=== PATIENT | female | born 1940 | race Caucasian/White ===

== ENCOUNTER 2016-10-15 13:14 | Emergency (ER) | payer OTHER ==
[~2016-10-15] VITALS: Ht 149.9 cm; Wt 100.7 kg
[~2016-10-15 13:14] MED LIST: ATENOLOL50 MG PO; CALCIUM + D 6001 TAB PO; COENZYME Q-10100 MG PO; FUROSEMIDE40 MG PO; GOOD SENSE ASPI81 M1 PO; LEVSIN-SL0.125 MG SL; MECLIZINE HCL25 MG PO; MOBIC15 MG PO; NEURONTIN300 MG PO; TYLENOL WITH C1 EACH PO; VITAMIN B1001 TAB PO; ZYLOPRIM 300MG300 MG PO
--- NOTE | 2016-10-15 14:00 | ULTRASOUND REPORT ---
EXAMINATION: US TRIPLEX LOWER EXTREMITY, LEFT CLINICAL INFORMATION: Left lower extremity pain and swelling of one week's duration. COMPARISON: None. TECHNIQUE: Color-flow triplex imaging with spectral analysis and compression Doppler were performed on the lower extremity. FINDINGS: Respiratory variation, normal compression and augmented flow are noted throughout the left lower extremity. The visualized common femoral vein, proximal greater saphenous vein, femoral vein, profunda femoral vein, popliteal vein and visualized mid calf venous segments show no evidence of deep venous thrombosis. There is a left popliteal fossa 3.4 x 1.1 x 1.5 cm Cortes's cyst. IMPRESSION: 1. Normal triplex scan without evidence of deep venous thrombosis involving the left lower extremity. 2. A left popliteal fossa Cortes's cyst is seen, as detailed.
--- NOTE | 2016-10-15 16:04 | ED UPPER/LOWER EXTREMITY COMPL ---
History of Present Illness General Chief Complaint: General Adult Stated Complaint: LEFT LEG SWELLING Source: patient Exam Limitations: no limitations Vital Signs & Intake/Output Vital Signs & Intake/Output Vital Signs Date Time Temp Pulse Resp B/P B/P Pulse O2 O2 Flow FiO2 Mean Ox Delivery Rate 10/15 1713 96.7 70 16 153/71 97 Room Air 10/15 1546 Room Air Room Air 10/15 1543 97.4 81 15 134/65 98 Room Air Room Air 10/15 1320 98.6 70 18 133/73 96 Room Air Allergies Coded Allergies: Fish Containing Products (Severe, RASH FROM FISH 09/25/15) cilostazol (Severe, RECTAL BLEEDING AND RASH 09/25/15) pentoxifylline (Severe, RECTAL BLEEDING AN RASH 09/25/15) pork derived (porcine) (Severe, RASH 09/25/15) shellfish derived (Severe, RASH 09/25/15) morphine (Intermediate, RASH 09/25/15) acetaminophen (From Percocet) (UNKNOWN 09/25/15) adhesive tape (UNKNOWN 09/26/15) aspirin (RASH WITH HIGHER DOSE (81MG DOSE IS OK?) 09/25/15) cabbage (UNKNOWN 09/25/15) cortisone (UNKNOWN 09/25/15) guaifenesin (UNKNOWN 09/25/15) hydrocodone (UNKNOWN 09/25/15) latex (UNKNOWN 09/25/15) oxycodone (From Percocet) (UNKNOWN 09/25/15) propoxyphene (RASH AND NAUSEA 09/25/15) lactase (From DAIRY AID) (Intermediate, UNKNOWN 09/26/15) Uncoded Allergies: WHITE BREAD (Intermediate, UNKNOWN 09/26/15) Reconcile Medications Allopurinol (Zyloprim 300MG Tab) 300 MG TABLET 1 TAB PO DAILY GOUT (Reported) Aspirin 81 MG TAB.CHEW 1 TAB PO DAILY HEART HEALTH (Reported) Atenolol 50 MG TABLET 1 TAB PO DAILY HTN (Reported) Calcium/Vitamin D (Calcium + D) 600 MG/200 IU TAB 1 TAB PO BID BONES ( Reported) Coenzyme Q10 (Coenzyme Q-10) 100 MG CTB 1 TAB PO DAILY SUPPLEMENT (Reported) Furosemide 40 MG TABLET 1 TAB PO DAILY HTN (Reported) Gabapentin (Neurontin) 300 MG CAP 1 CAP PO 4 TIMES UNKNOWN (Reported) Hyoscyamine Sulfate (Levsin-Sl) 0.125 MG TAB.SUBL 1-2 TAB SL Q4P PRN abdominal cramps Meclizine HCl 25 MG TABLET 1 TAB PO TIDPRN PRN vertigo Meloxicam (Mobic) 15 MG TAB 1 TAB PO DAILY UNKNOWN (Reported) Vitamin B Complex4 (Vitamin B100) 1 TAB TAB 1 TAB PO BID SUPPLEMENT (Reported ) Triage Note: 76 Y/O FEMALE C/O PAIN TO L LOWER EXTREMITY X 1 WEEK. REPORTS SWELLING TO KNEE AND PAIN BEHIND THE LEG. WEARING COMPRESSION WRAP WHICH PT IS UNSURE IF IT IS HELPING. PMD CONCERNED ABOUT DVT. Triage Nurses Notes Reviewed? yes Onset: Abrupt Duration: week(s): (2), constant, continues in ED Timing: recent history Severity: moderate, severe Pain/Injury Location: Left: Leg, Knee. Method of Injury: unknown No Modifying Factors: none HPI: 76-year-old female comes into emergency room for further evaluation of left leg pain and knee pain. Patient reports that she's been having pain for the past couple weeks. Pain is sharp. Throbbing. Continuous. Associated swelling of the entire leg. Patient has a history of previous knee replacement 20 years ago. She reports that her leg gives out from time to time and she falls at home intermittently. She uses a walker. She primarily has pain in her knee but reports some diffuse leg swelling. Denies any redness. Denies any fever or chills. Denies any other symptoms such as chest pain shortness of breath lightheaded dizziness area of mechanical falls. (SENA JOHNSON) Past History Travel History Traveled to [place] past 21 day No Medical History Any Pertinent Medical History? see below for history Neurological: NONE EENT: hearing loss, WEARS HEARING AIDS Cardiovascular: CHF, hypertension, PACEMAKER L CHEST Respiratory: NONE Gastrointestinal: NONE Hepatic: NONE Renal: NONE Musculoskeletal: osteoarthritis, "L SHOULDER POPS OUT" Psychiatric: NONE Endocrine: NONE Blood Disorders: NONE Cancer(s): NONE [employer]/Reproductive: NONE History of MRSA: No History of VRE: No History of CDIFF: No Surgical History Surgical History: knee replacement (B/L), L SHOULDER REPAIR Psychosocial History Who do you live with Family Services at Home None What is your primary language Luxembourgish Tobacco Use: Never used Family History Hx Contributory? No (SENA JOHNSON) Review of Systems Review of Systems Constitutional: Reports: no symptoms. EENTM: Reports: no symptoms. Respiratory: Reports: no symptoms. Cardiovascular: Reports: no symptoms. Gastrointestinal/Abdominal: Reports: no symptoms. Genitourinary: Reports: no symptoms. Musculoskeletal: Reports: see HPI. Skin: Reports: no symptoms. Neurological/Psychological: Reports: no symptoms. Hematologic/Endocrine: Reports: no symptoms. Immunological: Reports: no symptoms. All Other Systems: Reviewed and Negative (SENA JOHNSON) Physical Exam Physical Exam General Appearance: well developed/nourished, mild distress Head: atraumatic Eyes: Bilateral: normal appearance. Ears, Nose, Throat: normal ENT inspection, hearing grossly normal Neck: normal inspection Cardiovascular/Respiratory: no respiratory distress Back: normal inspection Leg Left: swelling, no pitting edema, no warmth, no erythema, Knee Left: Limited range of motion, soft tissue tenderness, Foot Left: normal inspection, normal range of motion Neurologic/Tendon: normal sensation, normal motor functions, normal tendon functions, responds to pain, no evidence tendon injury, no pulse deficit Skin: intact, normal color, warm/dry Lymphatic: no anterior cervical dave (SENA JOHNSON) Progress Differential Diagnosis: arterial insufficiency, cellulitis, CHF, contusion, dislocation, DVT, fracture, gout, septic arthritis, sprain, tendon injury Plan of Care: Orders Procedure Date/time Status XRY-KNEE COMPLETE LEFT 10/153 Active Diagnostic Imaging: Viewed by Me: Radiology Read, Ultrasound. Discussed w/RAD: Radiology Read, Ultrasound. Radiology Impression: EXAM TYPE: RAD - XRY-KNEE COMPLETE LEFT EXAMINATION: XR KNEE, LEFT CLINICAL INFORMATION: Pain status post fall. COMPARISON: 02/28/2016. TECHNIQUE: Four views of the left knee. FINDINGS: There are post total knee arthroplasty changes with metallic distal femoral and proximal tibial components with resurfacing of the patella with a radiolucent spacer. There are a few small osseous fragments identified, 2 above the patella these may represent small intra-articular loose bodies, they are not well seen on the other views. The largest fragment is the inferior one measuring 1.3 cm maximal dimension. Small joint effusion is suspected. IMPRESSION: No evidence of an acute injury. Postoperative changes with small osseous fragments as noted. DICTATED BY: NEREIDA PANDA MD DATE/TIME DICTATED:10/15/161642 ACTUARIAL CLERK:[place] , SERVICE DATE: 10/15/16 EXAM TYPE: US - US-UNILATERAL VENOUS DOPPLER EXAMINATION: US TRIPLEX LOWER EXTREMITY, LEFT CLINICAL INFORMATION: Left lower extremity pain and swelling of one week's duration. COMPARISON: None. TECHNIQUE: Color-flow triplex imaging with spectral analysis and compression Doppler were performed on the lower extremity. FINDINGS: Respiratory variation, normal compression and augmented flow are noted throughout the left lower extremity. The visualized common femoral vein, proximal greater saphenous vein, femoral vein, profunda femoral vein, popliteal vein and visualized mid calf venous segments show no evidence of deep venous thrombosis. There is a left popliteal fossa 3.4 x 1.1 x 1.5 cm Cortes's cyst. IMPRESSION: 1. Normal triplex scan without evidence of deep venous thrombosis involving the left lower extremity. 2. A left popliteal fossa Cortes's cyst is seen, as detailed. DICTATED BY: DAYA MURRIETA MD DATE/TIME DICTATED:10/15/161352 ACTUARIAL CLERK:ER[place] DATE/ TIME TRANSCRIBED:10/15/161352 Comments: 10/15/2016 5:47:16 PM Patient clinically looks well. Patient is nontoxic-appearing. Patient is in no apparent distress. No evidence of acute fracture. No evidence of DVT. No evidence of septic joint. Patient needs follow back up with primary care doctor. Return if any other concerns. Patient understands and agrees with plan of care. Case discussed with Dr. Mercer. ([facility]) Departure Departure Disposition: HOME OR SELF CARE Condition: Stable Clinical Impression Primary Impression: Cortes's cyst of knee Secondary Impressions: Arthritis Referrals: DAVIN AMAYA,DERRICK Johnson (PCP/Family) Additional Instructions: Ice. Rest. Follow-up with orthopedic doctor. Take your pain medication at home. Return if any concerns. Please go over all results of today's visit with your primary care doctor. Contact your primary care doctor to let them know you were here in the emergency room. There may be nonspecific findings which may not be related to your visit today here in the emergency room but may require further evaluation and chronic monitoring by your primary care doctor. If you had a laceration today the chance of foreign body always remains. You should follow-up with your primary care doctor for recheck in 3-5 days for a wound check. If you had an x-ray done there is a chance that a fracture could have been missed on initial read and you should follow-up with your primary care doctor for repeat x-rays if symptoms persist. If your blood pressure was elevated here in the emergency room please have rechecked by her primary care doctor within the next 48 hours by your primary care doctor. If you were prescribed a narcotic here in the emergency room or any type of controlled substances you're not allowed to drive while taking this medication or operate any type of heavy machinery. Narcotics can make you feel lightheaded dizziness nausea and can cause constipation. You may need to pickle solution maker a stool softener. Thank you for choosing [facility] emergency room. Please return to the emergency room immediately if you have any other concerns worsening of symptoms. Departure Forms: Customer Survey General Discharge Information (SENA JOHNSON) PA/INSOLE REINFORCER Co-Sign Statement Statement: ED Attending supervision documentation- [x] I saw and evaluated the patient. I have also reviewed all the pertinent lab results and diagnostic results. I agree with the findings and the plan of care as documented in the PA's/INSOLE REINFORCER's documentation. [] I have reviewed the ED Record and agree with the PA's/INSOLE REINFORCER's documentation. [] Additions or exceptions (if any) to the PAs/INSOLE REINFORCER's note and plan are summarized below: [] (MARINO AMAYA,XANDER Bone)
--- NOTE | 2016-10-15 16:49 | RADIOLOGY REPORT ---
EXAMINATION: XR KNEE, LEFT CLINICAL INFORMATION: Pain status post fall. COMPARISON: 02/28/2016. TECHNIQUE: Four views of the left knee. FINDINGS: There are post total knee arthroplasty changes with metallic distal femoral and proximal tibial components with resurfacing of the patella with a radiolucent spacer. There are a few small osseous fragments identified, 2 above the patella these may represent small intra-articular loose bodies, they are not well seen on the other views. The largest fragment is the inferior one measuring 1.3 cm maximal dimension. Small joint effusion is suspected. IMPRESSION: No evidence of an acute injury. Postoperative changes with small osseous fragments as noted.
[2016-10-15 17:13] VITALS: BP 153/71
== END 2016-10-15 18:01 ==
LOC: ERH 13:14
DX: M71.22 Synovial cyst of popliteal space [Baker], left knee (principal); M17.9 Osteoarthritis of knee, unspecified
CPT/HCPCS: 73562-LT

== ENCOUNTER 2017-10-19 01:48 | Emergency (ER) | payer OTHER ==
[~2017-10-19] VITALS: Ht 147.3 cm; Wt 98.0 kg
[~2017-10-19 01:48] MED LIST changes: +ASPIRIN81 M4 PO; +ATENOLOL50 M1 PO; -ATENOLOL50 MG PO; -CALCIUM + D 6001 TAB PO; +CALCIUM + D3 E1 EACH PO; -COENZYME Q-10100 MG PO; +COENZYME Q10100 M1 PO; -FUROSEMIDE40 MG PO; -GOOD SENSE ASPI81 M1 PO; +LASIX40 M1 PO; +MOBIC15 M1 PO; -MOBIC15 MG PO; +NEURONTIN300 M1 PO; -NEURONTIN300 MG PO; +VITAMIN B-6100 M1 PO; -VITAMIN B1001 TAB PO; -ZYLOPRIM 300MG300 MG PO; +ZYLOPRIM300 M1 PO
--- NOTE | 2017-10-19 01:53 | ED UPPER/LOWER EXTREMITY COMPL ---
History of Present Illness General Chief Complaint: Hip Injury Stated Complaint: BIBA LEFT HIP PAIN Source: patient, EMS Exam Limitations: no limitations Vital Signs & Intake/Output Vital Signs & Intake/Output Vital Signs Date Time Temp Pulse Resp B/P B/P Pulse O2 O2 Flow FiO2 Mean Ox Delivery Rate 10/19 0326 98.3 72 18 151/67 97 Room Air 10/19 0153 97.7 75 18 151/75 99 Room Air Allergies Coded Allergies: Fish Containing Products (Severe, RASH FROM FISH 10/20/17) cilostazol (Severe, RECTAL BLEEDING AND RASH 10/20/17) pentoxifylline (Severe, RECTAL BLEEDING AN RASH 10/20/17) pork derived (porcine) (Severe, RASH 10/20/17) shellfish derived (Severe, RASH 10/20/17) morphine (Intermediate, RASH 10/20/17) acetaminophen (From Percocet) (UNKNOWN 10/20/17) adhesive tape (UNKNOWN 10/20/17) aspirin (RASH WITH HIGHER DOSE (81MG DOSE IS OK?) 10/20/17) cabbage (UNKNOWN 10/20/17) cortisone (UNKNOWN 10/20/17) guaifenesin (UNKNOWN 10/20/17) hydrocodone (UNKNOWN 10/20/17) latex (UNKNOWN 10/20/17) oxycodone (From Percocet) (UNKNOWN 10/20/17) propoxyphene (RASH AND NAUSEA 10/20/17) lactase (From DAIRY AID) (Intermediate, UNKNOWN 10/20/17) Uncoded Allergies: WHITE BREAD (Intermediate, UNKNOWN 09/26/15) Reconcile Medications Acetaminophen With Codeine (Acetaminophen-Cod #3 Tablet) 300 MG-30 MG TABLET 1 TAB PO Q6P PRN PAIN (Reported) Allopurinol (Zyloprim) 300 MG TABLET 1 TAB PO DAILY GOUT (Reported) Aspirin (Aspirin*) 81 MG TAB.CHEW 1 TAB PO DAILY HEART HEALTH (Reported) Atenolol 50 MG TABLET 1 TAB PO DAILY HEART (Reported) Calcium Carb & Citrate/Vit D3 (Calcium + D3 ER Tablet) 600 MG CALCIUM-500 UNIT TABLET.ER 1 TAB PO DAILY SUPPLEMENT (Reported) Coenzyme Q10 100 MG CAPSULE 1 CAP PO DAILY SUPPLEMENT (Reported) Furosemide (Lasix) 40 MG TABLET 1 TAB PO DAILY HTN (Reported) Gabapentin (Neurontin) 300 MG CAPSULE 1 CAP PO 4 TIMES/DAY UNKNOWN (Reported) Meloxicam (Mobic) 15 MG TABLET 1 TAB PO DAILY PAIN (Reported) Pyridoxine HCl (Vitamin B-6) 100 MG TABLET 1 TAB PO DAILY VITAMIN SUPPORT ( Reported) Triage Nurses Notes Reviewed? yes Onset: Gradual Duration: day(s): Timing: recent history Severity: mild, moderate Pain/Injury Location: Left: Hip. Method of Injury: unknown Modifying Factors: Improves With: pain medication, rest. Worsens With: movement. Associated Symptoms: left hip pain HPI: 77 yo woman h/o chronic pain presents with left hip pain x 1 day. She notes, "I usually just take tylenol #3 every now and then... a 2 week prescription usually lasts me a month.... Today, I've taken tylenol #3 three times." She notes increased pain, difficulty ambulation, no trauma. She is otherwise well. Past History Travel History Traveled to [place] past 21 day No Medical History Any Pertinent Medical History? 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 No Review of Systems Review of Systems Constitutional: Reports: no symptoms. EENTM: Reports: no symptoms. Respiratory: Reports: no symptoms. Cardiovascular: Reports: no symptoms. Gastrointestinal/Abdominal: Reports: no symptoms. Genitourinary: Reports: no symptoms. Musculoskeletal: Reports: no symptoms. Skin: Reports: no symptoms. Neurological/Psychological: Reports: no symptoms. Hematologic/Endocrine: Reports: no symptoms. Immunological: Reports: no symptoms. All Other Systems: Reviewed and Negative Physical Exam Physical Exam General Appearance: well developed/nourished, mild distress Head: atraumatic Eyes: Bilateral: normal appearance. Ears, Nose, Throat: normal pharynx Neck: normal inspection, supple, full range of motion Cardiovascular/Respiratory: normal breath sounds, normal peripheral pulses Hip Left: diffuse tenderness in left hip girdle with focal tenderness in left lower lumbar area in musculature. No focal bony tenderness. Skin: intact Progress Differential Diagnosis: contusion, dislocation, sprain, tendon injury Plan of Care: Current Medications Sig/North Start time Last Medication Dose Stop Time Status Admin Ketorolac 60 MG ONCE ONE 10/19 314 UNVr 10/19 Tromethamine 10/20 315 0324 (Toradol) Acetaminophen/ 2 TAB ONCE ONE 10/190 CAN Codeine Phosphate 10/19 200 (Tylenol #3) Diagnostic Imaging: Viewed by Me: Radiology Read. Discussed w/RAD: Radiology Read. Radiology Impression: PATIENT: FRANCES DIAZ PRESENT AGE: 77 PATIENT ACCOUNT NO: [id number] : 42 LOCATION: ER ORDERING PHYSICIAN: Nam Grajeda MD SERVICE DATE: 10/19/17 EXAM TYPE: RAD - XRY-LUMBOSACRAL SPINE AP & LAT EXAMINATION: XR LUMBOSACRAL SPINE CLINICAL INFORMATION: Pain COMPARISON: 01/25/2016 TECHNIQUE: 2 views of the lumbosacral spine. FINDINGS: There is grade 1 anterolisthesis of L4 on L5, similar to prior. Vertebral body heights are maintained. There is diffuse disc space narrowing and vacuum disc phenomenon throughout the lumbar spine. There is diffuse endplate osteophyte formation and facet arthropathy. No acute fracture is seen. The sacroiliac joints appear intact. IMPRESSION: No acute findings identified. Diffuse degenerative changes throughout the lumbar spine. DICTATED BY: Bartolo Jimenez MD DATE/TIME DICTATED:10/19/17301 CERAMIC RESTORER:ER[place] DATE/ TIME TRANSCRIBED:10/19/17301 CONFIDENTIAL, DO NOT COPY WITHOUT APPROPRIATE AUTHORIZATION. <Electronically signed in Other Vendor System> SIGNED BY: Bartolo Jimenez MD 10/19/17307, PATIENT: FRANCES DIAZ PRESENT AGE: 77 PATIENT ACCOUNT NO: [id number] : 42 LOCATION: ER ORDERING PHYSICIAN: Nam Grajeda MD SERVICE DATE: 10/19/17 EXAM TYPE: RAD - XRY-HIP 2-3 VIEWS, LEFT EXAMINATION: XR HIP, LEFT CLINICAL INFORMATION: Pain COMPARISON: 01/25/2016 TECHNIQUE: Two views of the left hip. FINDINGS: The lateral view image is suboptimal due to motion artifact. Per technologist report, patient positioning was difficult. Alignment across the hip appears anatomic, with mild degenerative change. No acute fracture is seen. Included portions of the left pelvis appear intact. IMPRESSION: No acute findings identified. DICTATED BY: Bartolo Jimenez MD DATE/TIME DICTATED:10/19/17299 CERAMIC RESTORER:ER[place] DATE/TIME TRANSCRIBED:10/19/17299 CONFIDENTIAL, DO NOT COPY WITHOUT APPROPRIATE AUTHORIZATION. <Electronically signed in Other Vendor System> SIGNED BY: Bartolo Jimenez MD 10/19/17304 Departure Departure Disposition: HOME OR SELF CARE Condition: Stable Clinical Impression Primary Impression: Arthritis of left hip Secondary Impressions: Chronic pain Referrals: Jamel AMAYA,El Johnson (PCP/Family) Departure Forms: Customer Survey General Discharge Information Comments 10/19/17, 3:27am... pt feeling better after one dose of t#3... will give toradol 60mg im and then patient wishes to go home. She will follow up with her orthopedist and her PMD. common, along with confusion, ataxia.
--- NOTE | 2017-10-19 03:05 | RADIOLOGY REPORT ---
EXAMINATION: XR HIP, LEFT CLINICAL INFORMATION: Pain COMPARISON: 01/25/2016 TECHNIQUE: Two views of the left hip. FINDINGS: The lateral view image is suboptimal due to motion artifact. Per technologist report, patient positioning was difficult. Alignment across the hip appears anatomic, with mild degenerative change. No acute fracture is seen. Included portions of the left pelvis appear intact. IMPRESSION: No acute findings identified.
--- NOTE | 2017-10-19 03:08 | RADIOLOGY REPORT ---
EXAMINATION: XR LUMBOSACRAL SPINE CLINICAL INFORMATION: Pain COMPARISON: 01/25/2016 TECHNIQUE: 2 views of the lumbosacral spine. FINDINGS: There is grade 1 anterolisthesis of L4 on L5, similar to prior. Vertebral body heights are maintained. There is diffuse disc space narrowing and vacuum disc phenomenon throughout the lumbar spine. There is diffuse endplate osteophyte formation and facet arthropathy. No acute fracture is seen. The sacroiliac joints appear intact. IMPRESSION: No acute findings identified. Diffuse degenerative changes throughout the lumbar spine.
[2017-10-19 03:26] VITALS: BP 151/67
[2017-10-20] MEDS ORDERED: ACETAMINOPHEN-1 EAC3 PO (10:29)
== END 2017-10-19 03:52 ==
LOC: ERH 01:48
DX: M16.12 Unilateral primary osteoarthritis, left hip (principal); G89.29 Other chronic pain
CPT/HCPCS: 72100; 73502-LT; 96372; J1885

== ENCOUNTER 2017-10-20 08:29 | Inpatient (IN) | payer OTHER ==
[~2017-10-20] VITALS: Ht 147.3 cm; Wt 98.0 kg
--- NOTE | 2017-10-20 08:38 | ED GENERAL ADULT ---
History of Present Illness General Chief Complaint: Hip Injury Stated Complaint: L HIP PAIN; SEEN HERE FOR SAME Source: patient, family Exam Limitations: no limitations Vital Signs & Intake/Output Vital Signs & Intake/Output Vital Signs Date Time Temp Pulse Resp B/P B/P Pulse O2 O2 Flow FiO2 Mean Ox Delivery Rate 10/20 2206 98.1 64 20 116/70 92 10/20 1612 98.3 67 20 110/80 94 10/20 1446 97.1 82 18 162/75 97 Room Air 10/20 1128 97.8 78 18 154/67 10/20 1128 78 18 154/67 100 Room Air 10/20 0831 97.8 85 15 140/84 97 Room Air Room Air Allergies Coded Allergies: Fish Containing Products (Severe, RASH FROM FISH 10/20/17) cilostazol (Severe, RECTAL BLEEDING AND RASH 10/20/17) pentoxifylline (Severe, RECTAL BLEEDING AN RASH 10/20/17) pork derived (porcine) (Severe, RASH 10/20/17) shellfish derived (Severe, RASH 10/20/17) morphine (Intermediate, RASH 10/20/17) acetaminophen (From Percocet) (UNKNOWN 10/20/17) adhesive tape (UNKNOWN 10/20/17) aspirin (RASH WITH HIGHER DOSE (81MG DOSE IS OK?) 10/20/17) cabbage (UNKNOWN 10/20/17) cortisone (UNKNOWN 10/20/17) guaifenesin (UNKNOWN 10/20/17) hydrocodone (UNKNOWN 10/20/17) latex (UNKNOWN 10/20/17) oxycodone (From Percocet) (UNKNOWN 10/20/17) propoxyphene (RASH AND NAUSEA 10/20/17) lactase (From DAIRY AID) (Intermediate, UNKNOWN 10/20/17) Uncoded Allergies: WHITE BREAD (Intermediate, UNKNOWN 09/26/15) Reconcile Medications Acetaminophen With Codeine (Acetaminophen-Cod #3 Tablet) 300 MG-30 MG TABLET 1 TAB PO Q6P PRN PAIN (Reported) Allopurinol (Zyloprim) 300 MG TABLET 1 TAB PO DAILY GOUT (Reported) Aspirin (Aspirin*) 81 MG TAB.CHEW 1 TAB PO DAILY HEART HEALTH (Reported) Atenolol 50 MG TABLET 1 TAB PO DAILY HEART (Reported) Calcium Carb & Citrate/Vit D3 (Calcium + D3 ER Tablet) 600 MG CALCIUM-500 UNIT TABLET.ER 1 TAB PO DAILY SUPPLEMENT (Reported) Coenzyme Q10 100 MG CAPSULE 1 CAP PO DAILY SUPPLEMENT (Reported) Furosemide (Lasix) 40 MG TABLET 1 TAB PO DAILY HTN (Reported) Gabapentin (Neurontin) 300 MG CAPSULE 1 CAP PO 4 TIMES/DAY UNKNOWN (Reported) Meloxicam (Mobic) 15 MG TABLET 1 TAB PO DAILY PAIN (Reported) Pyridoxine HCl (Vitamin B-6) 100 MG TABLET 1 TAB PO DAILY VITAMIN SUPPORT ( Reported) Triage Note: PT TO ED FOR C/C OF L HIP PAIN WITHOUT INJURY X A FEW DAYS. WAS SEEN IN ED ON ?TUESDAY AND TOLD IT WAS OSTEOARTHRITIS. PT WAS SENT HOME ON PAIN MEDS, BUT PAIN IS STILL SEVERE. Triage Nurses Notes Reviewed? yes Onset: Abrupt Duration: week(s): Timing: recent history Severity: severe HPI: 10/20/17 77-year-old female presents to the emergency department for severe intractable back pain and left hip pain. The patient says she's had multiple prior operations. She has a history of gout, TIA, hypertension, neuropathy, and severe osteoarthritis. She sees Dr. Mccullough. She is also allergic to multiple medications. She was seen in the emergency department last night by Dr. Grajeda. She received IM Toradol and was discharged. Now she returns and she is in severe intractable pain and is unable to walk. (Zay Zarate DO) Past History Travel History Traveled to [place] past 21 day No Medical History Any Pertinent Medical History? 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 No (Zay Zarate DO) Review of Systems Review of Systems Constitutional: Denies: fever. EENTM: Reports: no symptoms. Respiratory: Denies: short of breath. Cardiovascular: Denies: chest pain. GI: Reports: no symptoms. Genitourinary: Reports: no symptoms. Musculoskeletal: Reports: see HPI. Skin: Denies: rash. Neurological/Psychological: Reports: see HPI. Hematologic/Endocrine: Reports: no symptoms. Immunologic/Allergic: Reports: no symptoms. (Zay Zarate DO) Physical Exam Physical Exam General Appearance: alert, awake, anxious, moderate distress Head: atraumatic, normal appearance Eyes: Bilateral: normal appearance, PERRL, EOMI. Ears, Nose, Throat: normal ENT inspection Neck: supple Respiratory: no respiratory distress Cardiovascular: regular rate/rhythm Peripheral Pulses: 4+ radial (R), 4+ radial (L) Gastrointestinal: non-tender Back: CVA tenderness (L), decreased range of motion, muscle spasm Extremities: pedal edema Neurologic/Psych: no motor/sensory deficits, awake, alert, oriented x 3 Skin: intact, normal color, warm/dry Core Measures ACS in differential dx? No CVA/TIA Diagnosis: No Sepsis Present: No Sepsis Focused Exam Completed? No (Zay Zarate DO) Progress Differential Diagnoses I considered the following diagnoses in my evaluation of the patient: [Disc herniation, osteoarthritis, neuropathy, compression fracture] Plan of Care: Orders Procedure Date/time Status CBC WITHOUT DIFFERENTIAL 10/21 0600 Active BASIC ELECTROLYTES PLUS BUN&CR 10/21 0600 Active Heart Healthy Diet 10/20 D Active Patient Data 10/20 1644 Active Weight 10/20 1431 Active Vital Signs 10/20 1431 Active Teach/Educate 10/20 1431 Active Pain Treatment and Response 10/20 1431 Active Nutritional Intake, Monitor 10/20 1431 Active Isolation 10/20 1431 Active Intake & Output 10/20 1431 Active Patient Care Conference 10/20 1431 Active Activity/Ambulation 10/20 1431 Active Pathway - chart 10/20 1358 Active House Staff 10/20 1358 Active Patient Data 10/20 1358 Active ED Holding Orders 10/20 1317 Active Admit to inpatient 10/20 1317 Active Vital Signs 10/20 1317 Active Code Status 10/20 1317 Active PROTHROMBIN TIME 10/20 1022 Complete COMPREHENSIVE METABOLIC PANEL 10/20 1022 Complete CBC WITHOUT DIFFERENTIAL 10/20 1022 Complete EKG 10/20 1022 Active Intake & Output 10/20 0853 Active VTE Mechanical Prophylaxis 10/20 UNK Active Current Medications Sig/North Start time Last Medication Dose Stop Time Status Admin Enoxaparin Sodium 40 MG DAILY 10/21 0900 AC (Lovenox) Lidocaine 1 PAT DAILY 10/20 1830 AC 10/20 (Lidoderm) 1928 Acetaminophen 650 MG Q6P PRN 10/20 1400 AC (Tylenol) Acetaminophen 1,000 MG Q6P PRN 10/20 1400 AC (Ofirmev) Ketorolac 15 MG Q8P PRN 10/20 1400 AC Tromethamine (Toradol) Gabapentin 300 MG Q6 10/20 1200 AC 10/20 (Neurontin) 1732 Acetaminophen/ 2 TAB ONCE ONE 10/20 899 CAN Codeine Phosphate 10/20 09 (Tylenol #3) Laboratory Tests 10/20/17 1155: Anion Gap 12, Estimated GFR > 60, BUN/Creatinine Ratio 27.5 H, Glucose 106 H, Calcium 9.0, Total Bilirubin 1.0, AST 24, ALT 22, Alkaline Phosphatase 99, Total Protein 7.7, Albumin 4.0, Globulin 3.7, Albumin/Globulin Ratio 1.1, PT 12.4, INR 1.14, CBC w Diff NO MAN DIFF REQ, RBC 4.28, MCV 99.1 H, MCH 33.2 H, MCHC 33.5, RDW 13.6, MPV 8.6, Gran % 72.9, Lymphocytes % 21.5, Monocytes % 5.2, Eosinophils % 0.2, Basophils % 0.2, Absolute Granulocytes 6.4, Absolute Lymphocytes 1.9, Absolute Monocytes 0.5, Absolute Eosinophils 0, Absolute Basophils 0 Initial ED EKG: none (Zay Zarate DO) Departure Departure Disposition: STILL A PATIENT Condition: Stable Clinical Impression Primary Impression: Back pain Secondary Impressions: Intractable back pain, Spinal stenosis Referrals: Jamel AMAYA,El Johnson (PCP/Family) Departure Forms: Customer Survey General Discharge Information Admission Note Spoke With: Charles AMAYA,Ladonna Documentation of Exam: Documentation of any treatments & extenuating circumstances including Concerns Regarding Discharge (functional status, medication knowledge or non-compliance, living conditions, etc.) that warrant an admission rather than observation: [The patient has severe degenerative arthritis and is unable to ambulate. There has been acute change in her baseline ability to ambulate. She is therefore being admitted to the hospital for further care] CT results below PATIENT: FRANCES DIAZ PRESENT AGE: 77 PATIENT ACCOUNT NO: [id number] : 42 LOCATION: [facility] ORDERING PHYSICIAN: Zay Zarate DO SERVICE DATE: 10/20/17 EXAM TYPE: CAT - CT LUMB SPINE WO IV CONTRAST EXAMINATION: CT LUMBAR SPINE WITHOUT CONTRAST CLINICAL INFORMATION: Severe left hip and back pain. Assess for compression fracture. COMPARISON: Lumbar spine x-ray 10/19/2017. CT scan 10/29/2013. TECHNIQUE: Helical non-contrast CT images were obtained through the lumbar spine and 1.25 and 2.5 mm axial reconstructions were reviewed along with sagittal and coronal MPRs. DLP: 1057.78 mGy-cm FINDINGS: There is a dextroscoliosis in the mid lumbar region. There is a 7 mm grade 1 anterolisthesis of L4 on L5, which is similar compared to the prior study. There is a mild retrolisthesis of L5 on S1. There is narrowing of intervertebral disc height in the concavity of the scoliosis at the levels of L1-L2 and L2-L3, slightly increased compared to the prior study. There is also narrowing of intervertebral disc height on the right at L4-L5. There are vacuum disc changes throughout the lumbar spine. There are multilevel marginal osteophytes, which are most prominent on the right at T12-L1. Vertebral body heights are maintained and there are no acute compression fractures. There are multilevel degenerative endplate contour changes with sclerosis. There are extensive atheromatous calcifications of the aorta and its branches. The abdominal aorta is tortuous but has no evidence of aneurysm. The visualized retroperitoneal structures are unremarkable. There is diverticulosis in the sigmoid colon. There are degenerative changes of the bilateral sacroiliac joints. SPINAL LEVELS: T12-L1: There is moderate left and mild right facet arthropathy. There is a posterior disc osteophyte complex extending into the neural foramina bilaterally. There is narrowing of the subarticular recesses. There is mild central stenosis. L1-L2: There is severe left and moderate right facet arthropathy. There is a broad-based posterior disc protrusion with annular calcification. There is a left foraminal disc osteophyte complex with impingement on the exiting left L1 nerve root, which is not significantly changed compared to the prior study. There is narrowing of the bilateral subarticular recesses. There is mild to moderate central stenosis. L2-L3: There is severe bilateral facet arthropathy. There is a posterior disc osteophyte complex extending into the left greater than right neural foramina with impingement on the exiting L2 nerve roots. There is severe narrowing of the right subarticular recess. There is moderate central stenosis. L3-L4: There is severe bilateral facet arthropathy. There is a posterior disc osteophyte complex which is most prominent on the right narrowing the right neural foramen, slightly increased compared to the prior study. There is narrowing of the subarticular recesses bilaterally. There is moderate central stenosis. L4-L5: There is severe bilateral facet arthropathy, increased compared to the prior study and more extensive on the right. There is unroofing of the disc as a result of the anterolisthesis. There are bilateral foraminal disc protrusions, larger on the right and there is impingement on the exiting L4 nerve root. There is severe central stenosis. L5-S1: There is severe left and moderate right facet arthropathy. There is a prominent disc osteophyte complex extending into the neural foramina bilaterally with impingement on the exiting L5 nerve roots. There is severe narrowing of the subarticular recesses bilaterally. There is no central stenosis. IMPRESSION: 1. There are no acute fractures or subluxations. 2. The study redemonstrates severe multilevel spondylosis with disc protrusions/disc osteophyte complexes and facet arthropathy, contributing to central stenosis and foraminal narrowing as described above. 3. There is a grade 1 anterolisthesis of L4 on L5, and there is a retrolisthesis of L5 on S1. These appear similar compared to the prior study. DICTATED BY: Rian Sheets MD DATE/TIME DICTATED:10/20/171235 RADARMAN:[place] DATE/TIME TRANSCRIBED:10/20/171235 CONFIDENTIAL, DO NOT COPY WITHOUT APPROPRIATE AUTHORIZATION. <Electronically signed in Other Vendor System> SIGNED BY: Rian Sheets MD 10/20/17 1303 (Zay Zarate DO) Critical Care Note Critical Care Note Critical Care Time: non-applicable (Zay Zarate DO)
[2017-10-20] MEDS ORDERED: ACETAMINOPHEN-1 EAC3 PO (10:29)
--- NOTE | 2017-10-20 11:29 | CT SCAN REPORT ---
EXAMINATION: CT SCAN OF THE PELVIS: CLINICAL INFORMATION: Hip and back pain. COMPARISON: CT abdomen pelvis 01/25/2016 TECHNIQUE: Volume acquisition CT of the pelvis was performed without IV or oral contrast media. FINDINGS: Atherosclerotic changes are present in the aorta. No evidence of aneurysm is seen. Visualized bowel appears unremarkable aside from some mild diverticular changes in the sigmoid. There is no evidence of bowel obstruction. No ascites is seen. The bladder is distended but otherwise unremarkable. The uterus is not seen. In the region of the left adnexa, a 3 x 2 cm mass is seen which could represent the left ovary. This is present on the study from 01/25/2016, and is unchanged aside from possibly a difference in location which could be in favor of the ovary. The right ovary is not seen. No free fluid is seen. Tiny periumbilical hernia seen containing only fat. No groin hernias are seen. Degenerative changes are present in the lower lumbosacral spine with spondylolisthesis with forward slippage of L4 upon L5 (please see report from CT of lumbar spine). IMPRESSION: Incidental tiny periumbilical hernia and sigmoid diverticular changes. Patient status post hysterectomy. Left ovary is seen in the left lower quadrant.
[2017-10-20 12:04] LABS: ABSOLUTE BASOPHIL COUNT 0 /CUMM (0.0-0.2); ABSOLUTE EOSINOPHIL COUNT 0 /CUMM (0.0-0.7); ABSOLUTE GRANULOCYTE CT 6.4 /CUMM (1.4-6.5); ABSOLUTE LYMPH COUNT 1.9 /CUMM (1.2-3.4); ABSOLUTE MONOCYTE COUNT 0.5 /CUMM (0.10-0.60); BASOPHIL % 0.2 % (0.0-2.0); EOSINOPHIL % 0.2 % (0-5); GRANULOCYTE % 72.9 % (42.2-75.2); HEMATOCRIT 42.4 % (37-47); MEAN CORPUSCULAR HGB 33.2 PG (27.0-31.0); MEAN CORPUSCULAR HGB CONC 33.5 G/DL (33.0-37.0); MEAN CORPUSCULAR VOLUME 99.1 FL (81.0-99.0); MEAN PLATELET VOLUME 8.6 FL (7.4-10.4); PLATELET COUNT 243 /CUMM (130-400); RBC DISTRIBUTION WIDTH 13.6 % (11.5-14.5); RED BLOOD CELL CT 4.28 /CUMM (4.20-5.40); WHITE BLOOD CELL COUNT 8.7 /CUMM (4.8-10.8)
[2017-10-20 12:16] LABS: PT 12.4 SEC (9.4-12.5)
--- NOTE | 2017-10-20 13:03 | CT SCAN REPORT ---
EXAMINATION: CT LUMBAR SPINE WITHOUT CONTRAST CLINICAL INFORMATION: Severe left hip and back pain. Assess for compression fracture. COMPARISON: Lumbar spine x-ray 10/19/2017. CT scan 10/29/2013. TECHNIQUE: Helical non-contrast CT images were obtained through the lumbar spine and 1.25 and 2.5 mm axial reconstructions were reviewed along with sagittal and coronal MPRs. DLP: 1057.78 mGy-cm FINDINGS: There is a dextroscoliosis in the mid lumbar region. There is a 7 mm grade 1 anterolisthesis of L4 on L5, which is similar compared to the prior study. There is a mild retrolisthesis of L5 on S1. There is narrowing of intervertebral disc height in the concavity of the scoliosis at the levels of L1-L2 and L2-L3, slightly increased compared to the prior study. There is also narrowing of intervertebral disc height on the right at L4-L5. There are vacuum disc changes throughout the lumbar spine. There are multilevel marginal osteophytes, which are most prominent on the right at T12-L1. Vertebral body heights are maintained and there are no acute compression fractures. There are multilevel degenerative endplate contour changes with sclerosis. There are extensive atheromatous calcifications of the aorta and its branches. The abdominal aorta is tortuous but has no evidence of aneurysm. The visualized retroperitoneal structures are unremarkable. There is diverticulosis in the sigmoid colon. There are degenerative changes of the bilateral sacroiliac joints. SPINAL LEVELS: T12-L1: There is moderate left and mild right facet arthropathy. There is a posterior disc osteophyte complex extending into the neural foramina bilaterally. There is narrowing of the subarticular recesses. There is mild central stenosis. L1-L2: There is severe left and moderate right facet arthropathy. There is a broad-based posterior disc protrusion with annular calcification. There is a left foraminal disc osteophyte complex with impingement on the exiting left L1 nerve root, which is not significantly changed compared to the prior study. There is narrowing of the bilateral subarticular recesses. There is mild to moderate central stenosis. L2-L3: There is severe bilateral facet arthropathy. There is a posterior disc osteophyte complex extending into the left greater than right neural foramina with impingement on the exiting L2 nerve roots. There is severe narrowing of the right subarticular recess. There is moderate central stenosis. L3-L4: There is severe bilateral facet arthropathy. There is a posterior disc osteophyte complex which is most prominent on the right narrowing the right neural foramen, slightly increased compared to the prior study. There is narrowing of the subarticular recesses bilaterally. There is moderate central stenosis. L4-L5: There is severe bilateral facet arthropathy, increased compared to the prior study and more extensive on the right. There is unroofing of the disc as a result of the anterolisthesis. There are bilateral foraminal disc protrusions, larger on the right and there is impingement on the exiting L4 nerve root. There is severe central stenosis. L5-S1: There is severe left and moderate right facet arthropathy. There is a prominent disc osteophyte complex extending into the neural foramina bilaterally with impingement on the exiting L5 nerve roots. There is severe narrowing of the subarticular recesses bilaterally. There is no central stenosis. IMPRESSION: 1. There are no acute fractures or subluxations. 2. The study redemonstrates severe multilevel spondylosis with disc protrusions/disc osteophyte complexes and facet arthropathy, contributing to central stenosis and foraminal narrowing as described above. 3. There is a grade 1 anterolisthesis of L4 on L5, and there is a retrolisthesis of L5 on S1. These appear similar compared to the prior study.
--- NOTE | 2017-10-20 13:28 | History & Physical ---
Gibson Rae MD,[facility] 10/20/17 1320: General Information and HPI MD Statement: I have seen and personally examined FRANCES DIAZ and documented this H&P. The patient is a 77 year old F who presented with a patient stated chief complaint of [left hip pain]. Source of Information: patient, family History of Present Illness: Patient is 77-year-old female with PMH of obese, HTN, HLP, OA, degenerative joint disease, extensive back surgery, TIA in 2005, spinal stenosis, sick sinus node status post pacemaker placement in 2008 presented to ED for with CC of severe hip pain. Patient's granddaughter was at the bedside. Patient noted that she had chronic left hip pain for the last several years, but most since 3-4 days ago, she denied any truama, fall, or twisting the limb. She describe the pain as 10/10, burning like, in back of the left hip, worsens with movement and only minimally improved with pain medicaiton. She could not put any weight on the limb. She visited ED 2 days ago, was given pain medicatoins and was discharged, but as soon as she arrived home and the medicaiton weaned off pain started again and she came back. Pain increased with movement or lying in the left side. Patient was basically in the bed for the last several days. Patient is hard hearing, is udine incontinance in baseline, denied any chest pain, shortness of breathing, abdominal pain or change in stool color. Patient was last admitted to [place] in 2016 for shoulder pain. Allergies/Medications Allergies: Coded Allergies: Fish Containing Products (Severe, RASH FROM FISH 10/20/17) cilostazol (Severe, RECTAL BLEEDING AND RASH 10/20/17) pentoxifylline (Severe, RECTAL BLEEDING AN RASH 10/20/17) pork derived (porcine) (Severe, RASH 10/20/17) shellfish derived (Severe, RASH 10/20/17) morphine (Intermediate, RASH 10/20/17) acetaminophen (From Percocet) (UNKNOWN 10/20/17) adhesive tape (UNKNOWN 10/20/17) aspirin (RASH WITH HIGHER DOSE (81MG DOSE IS OK?) 10/20/17) cabbage (UNKNOWN 10/20/17) cortisone (UNKNOWN 10/20/17) guaifenesin (UNKNOWN 10/20/17) hydrocodone (UNKNOWN 10/20/17) latex (UNKNOWN 10/20/17) oxycodone (From Percocet) (UNKNOWN 10/20/17) propoxyphene (RASH AND NAUSEA 10/20/17) lactase (From DAIRY AID) (Intermediate, UNKNOWN 10/20/17) Uncoded Allergies: WHITE BREAD (Intermediate, UNKNOWN 09/26/15) Home Med list Acetaminophen With Codeine (Acetaminophen-Cod #3 Tablet) 300 MG-30 MG TABLET 1 TAB PO Q6P PRN PAIN (Reported) Allopurinol (Zyloprim) 300 MG TABLET 1 TAB PO DAILY GOUT (Reported) Aspirin (Aspirin*) 81 MG TAB.CHEW 1 TAB PO DAILY HEART HEALTH (Reported) Atenolol 50 MG TABLET 1 TAB PO DAILY HEART (Reported) Calcium Carb & Citrate/Vit D3 (Calcium + D3 ER Tablet) 600 MG CALCIUM-500 UNIT TABLET.ER 1 TAB PO DAILY SUPPLEMENT (Reported) Coenzyme Q10 100 MG CAPSULE 1 CAP PO DAILY SUPPLEMENT (Reported) Furosemide (Lasix) 40 MG TABLET 1 TAB PO DAILY HTN (Reported) Gabapentin (Neurontin) 300 MG CAPSULE 1 CAP PO 4 TIMES/DAY UNKNOWN (Reported) Meloxicam (Mobic) 15 MG TABLET 1 TAB PO DAILY PAIN (Reported) Pyridoxine HCl (Vitamin B-6) 100 MG TABLET 1 TAB PO DAILY VITAMIN SUPPORT ( Reported) Past History Travel History Traveled to [place] past 21 day No Medical History Neurological: NONE EENT: hearing loss, WEARS HEARING AIDS Cardiovascular: CHF, hypertension, PACEMAKER L CHEST Respiratory: NONE Gastrointestinal: NONE Hepatic: NONE Renal: NONE Musculoskeletal: osteoarthritis, "L SHOULDER POPS OUT" Psychiatric: NONE Endocrine: NONE Blood Disorders: NONE Cancer(s): NONE RN CARDIOVASCULAR/Reproductive: NONE History of MRSA: No History of VRE: No History of CDIFF: No Surgical History Surgical History: knee replacement (B/L), L SHOULDER REPAIR Past Family/Social History Psychosocial History Who Do You Live With? child Services at Home: None Primary Language: Macanese ETOH Use: denies use Illicit Drug Use: denies illicit drug use Functional Ability ADLs Independent: dressing, eating, toileting, bathing. Ambulation: walker Review of Systems Review of Systems Constitutional: Reports: see HPI. Exam & Diagnostic Data Last 24 Hrs of Vital Signs/I&O Vital Signs Date Time Temp Pulse Resp B/P B/P Pulse O2 O2 Flow FiO2 Mean Ox Delivery Rate 10/20 1446 97.1 82 18 162/75 97 Room Air 10/20 1128 97.8 78 18 154/67 05 1128 78 18 154/67 100 Room Air 10/20 0831 97.8 85 15 140/84 97 Room Air Room Air Intake & Output 10/20 1600 10/20 0800 10/20 0000 Intake Total Output Total Balance Patient 216 lb Weight Weight Reported by Patient Measurement Method Physical Exam General Appearance Alert, Oriented X3, Cooperative, Mild Distress, due to pain Skin Temp/Moisture Exam: Warm/Dry Sepsis Skin Exam (color): Normal for Ethnicity HEENT Atraumatic, EOMI Cardiovascular Normal S1, Normal S2 Lungs Normal Air Movement Abdomen Soft, No Tenderness Extremities point tenderness over the posterior side of left hip, motion limited due to severe pain, motor or or sensory intact. Last 24 Hrs of Labs/Feliberto: Laboratory Tests 10/20/17 1155: Anion Gap 12, Estimated GFR > 60, BUN/Creatinine Ratio 27.5 H, Glucose 106 H, Calcium 9.0, Total Bilirubin 1.0, AST 24, ALT 22, Alkaline Phosphatase 99, Total Protein 7.7, Albumin 4.0, Globulin 3.7, Albumin/Globulin Ratio 1.1, PT 12.4, INR 1.14, CBC w Diff NO MAN DIFF REQ, RBC 4.28, MCV 99.1 H, MCH 33.2 H, MCHC 33.5, RDW 13.6, MPV 8.6, Gran % 72.9, Lymphocytes % 21.5, Monocytes % 5.2, Eosinophils % 0.2, Basophils % 0.2, Absolute Granulocytes 6.4, Absolute Lymphocytes 1.9, Absolute Monocytes 0.5, Absolute Eosinophils 0, Absolute Basophils 0 Assessment/Plan Assessment: Patient is 77-year-old female presented with CC of severe hip pain PMH: obesity, HTN, HLP, OA, degenerative joint disease, extensive back surgery, bilateral TKR, TIA in 2005, spinal stenosis, sick sinus node status post pacemaker placement in 2008 VS, Ph Ex at admission: nonsignificant, BP 154/67 Labs at admission: C BC, BEP, coagulation insignificant Imagings at admission: Pelvic and Lumbar spine CT: - Incidental tiny periumbilical hernia and sigmoid diverticular changes. Patient status post hysterectomy. Left ovary is seen in the left lower quadrant 1. There are no acute fractures or subluxations. 2. The study redemonstrates severe multilevel spondylosis with disc protrusions/disc osteophyte complexes and facet arthropathy, contributing to central stenosis and foraminal narrowing as described above. 3. There is a grade 1 anterolisthesis of L4 on L5, and there is a retrolisthesis of L5 on S1. These appear similar compared to the prior study. Patient was admitted to floor for management of following conditions: Severe hip pain In setting of osteoarthritis, history of several back surgeries/spinal stenosis -Admit patient to general medicine floor -Patient allergic to several pain medication including several opiates -IV Tylenol and for pain, IV total for severe pain, consider adjusting the dose for age - Ortho consult placed -Hold off MRI for now as no neurological deficit, questionable compatibility of the pacemaker with MRI Chronic medical conditions: We will continue home medication DVT prophylaxis subcutaneous Lovenox Heart healthy diet Patient is full code. As Ranked By This Provider Problem List: 1. Arthritis of left hip 2. Intractable back pain 3. Hip pain, left Core Measures/Misc (03/06) Acute Coronary Syndrome ACS Diagnosis: No Congestive Heart Failure Congestive Heart Failure Diagnosis No Cerebrovascular Accident CVA/TIA Diagnosis: No VTE (View Protocol) VTE Risk Factors Age>40 No Mechanical VTE Prophylaxis d/t N/A MechProphylax Ordered No VTE Pharm Prophylaxis d/t NA PharmProphylax ordered Sepsis (View protocol) Sepsis Present: No Raine Quezada 10/20/17 1508: Resident Review Statement Resident Statement: examined this patient, discussed with internet researcher Other Findings: The patient is a 77-year-old woman with past medical history significant for hypertension, hyperlipidemia, osteoarthritis, severe degenerative joint disease/ osteoarthritis, gout, TIA in 2005, spinal stenosis, sick sinus node status post pacemaker placement in 2008,presented to the ED for the evaluation of severe intractable left hip pain. Patient has a history of severe osteoarthritis, had multiple back surgeries in the past, and follows up with Hugh King MD as an outpatient. She has ongoing lower back pain, but since Tuesday patient started having severe left- sided hip pain and reported that her pain is sharp 10 on 10 in severity without any radiation. Patient denied any weakness numbness and tingling into the legs denied any saddle anesthesia/urinary Incontinence. She has a history of chronic fecal incontinence (uses diapers that has not been changed). Denied any chest discomfort or breathing palpitations of the review of system is negative. Patient was seen in the ER , was discharged home after receiving IM Toradol. Vitals in the ED stable General Appearance: Alert, No Acute Distress Skin: Grossly normal HEENT: PEERLA Neck: Supple, No JVD Cardiovascular: Regular Rate, Normal S1, Normal S2, No Murmurs Lungs: Clear to Auscultation, Normal Air Movement Abdomen: Normal Bowel Sounds, Soft, No Tenderness Neurological: Point left hip tenderness, unable to elicit full neuro examination due to severe pain, however motor and sensory system grossly intact. No signs of saddle anesthesia Extremities: No Clubbing, No Cyanosis, No Edema Vascular: Normal Pulses Pertinent labs on admission Normal WBC count is stable slightly elevated BUN. Lumbar CAT scan There are no acute fractures or subluxations.The study redemonstrates severe multilevel spondylosis with disc protrusions/disc osteophyte complexes and facet arthropathy, contributing to central stenosis and foraminal narrowing as described above. There is a grade 1 anterolisthesis of L4 on L5, and there is a retrolisthesis of L5 on S1. These appear similar compared to the prior study. Assessment Severe left hip pain/sciatica due to severe osteoarthritis History of gout History of spinal stenosis. History of TIA in the past History of sick sinus node status post pacemaker placement in 2008 Plan Severe left hip pain/sciatica due to severe osteoarthritis * Admit the patient remained floor * Adequate pain control with IV Tylenol as needed for moderate and IV Toradol for severe pain. * Avoid opioids due to moderate to severe allergies. * Will consult orthopedics. * As are no signs and symptoms of cord compression, will hold off MRI for now. History of gout * Continue allopurinol. History of hypertension and hyperlipidemia,TIA and sick sinus node status post pacemaker placement in 2008 * Continue home medications DVT prophylaxis subcutaneous Lovenox Pain control with IV Tylenol and IV Toradol Patient is full code. Liang Mercer MD 10/20/17 2213: Attending MD Review Statement Attending Statement Attending Statement: examined this patient, discuss w/resident/PA/WIRE SPINNER, agreed w/resident/PA/WIRE SPINNER, discussed with family, reviewed EMR data (avail), discussed with nursing, amended to note Attending Assessment/Plan: Patient is a very pleasant 77-year-old female with medical history significant for sick sinus syndrome status post permanent pacemaker placement. History is also significant for extensive degenerative joint disease status post several back surgeries in the past. He reports that at baseline she is able to ambulate with use of furniture for support and occasionally a walker. She has chronic low back pain 5/10 in intensity usually relieved by Tylenol No. 3. She was in her usual state of health until earlier on this week when she developed worsening back pain. She was seen in the emergency room earlier this week and medicated and discharged home yesterday. She presents with worsening low back pain and difficulty ambulating. Imaging in the emergency room reveals extensive degenerative joint disease of the spine. No acute fractures noted. She was referred to the medical service for adequate pain control. Patient has allergies listed for a number of analgesic medication. He does not tolerate Percocet or Vicodin stating that she develops nausea vomiting. She does not tolerate morphine stating that she develops a rash. He reports good relief with Tylenol 3 at home in the past. She responded well to Toradol in the emergency room during her previous hospitalization so far today. She reports that when she presented to the emergency room her pain scale was 99/10. She reports that it has improved to 9/10 after being medicated. On examination she has no focal neurologic deficits. Power is diminished to 3/5 bilateral lower extremity secondary to pain. She does admit to history of incontinence but states that this is chronic for her. Recommendations: -Admit to inpatient medical service for adequate pain control. Continue patient on IV Tylenol. May utilize IV Toradol for breakthrough pain. Patient reports no relief with use of Lidoderm patch in the past. Orthopedic consultation was placed for consideration of epidural spinal injection. Recommendation at present are to continue with current pain regimen. Physical therapy consultation.-
--- NOTE | 2017-10-20 15:20 | Admission Certification ---
Admission Certification Certification Statement - As attending physician, I certify that at the time of - admission, based on clinical presentation, severity of - symptoms, need for further diagnostic testing and - therapeutic interventions, and risk of adverse outcomes - without in-hospital treatment, in my clinical assessment, - this patient requires an acute hospital stay for a minimum - of two nights or longer. I have also considered psychsocial - factors such as support system, advanced age, financial - issues, cognitive issues, and failed out-patient treatments, - past re-admission history, safety of patient, and lack of - compliance as applicable. Specific rationale supporting this admission is: Patient will be admitted for optimization of pain control. She will require evaluation by the orthopedic service.
[2017-10-20 16:12] VITALS: BP 110/80
--- NOTE | 2017-10-20 18:11 | Cons- Orthopedic ---
General Information and HPI Consulting Request Date of Consult: 10/20/17 Requested By: Liang Mercer MD Reason for Consult: Low back pain and left hip pain Source of Information: patient Exam Limitations: no limitations History of Present Illness: 77-year-old female brought to the emergency room today with intractable severe low back pain posterior left hip pain. She has known history of significant degenerative disease of the lumbar spine. Over the past 3 days of increasing pain with difficulty ambulating and bearing weight. She denies any neurologic symptoms in the bilateral lower extremity's. Allergies/Medications Allergies: Coded Allergies: Fish Containing Products (Severe, RASH FROM FISH 10/20/17) cilostazol (Severe, RECTAL BLEEDING AND RASH 10/20/17) pentoxifylline (Severe, RECTAL BLEEDING AN RASH 10/20/17) pork derived (porcine) (Severe, RASH 10/20/17) shellfish derived (Severe, RASH 10/20/17) morphine (Intermediate, RASH 10/20/17) acetaminophen (From Percocet) (UNKNOWN 10/20/17) adhesive tape (UNKNOWN 10/20/17) aspirin (RASH WITH HIGHER DOSE (81MG DOSE IS OK?) 10/20/17) cabbage (UNKNOWN 10/20/17) cortisone (UNKNOWN 10/20/17) guaifenesin (UNKNOWN 10/20/17) hydrocodone (UNKNOWN 10/20/17) latex (UNKNOWN 10/20/17) oxycodone (From Percocet) (UNKNOWN 10/20/17) propoxyphene (RASH AND NAUSEA 10/20/17) lactase (From DAIRY AID) (Intermediate, UNKNOWN 10/20/17) Uncoded Allergies: WHITE BREAD (Intermediate, UNKNOWN 09/26/15) Home Med List: Acetaminophen With Codeine (Acetaminophen-Cod #3 Tablet) 300 MG-30 MG TABLET 1 TAB PO Q6P PRN PAIN (Reported) Allopurinol (Zyloprim) 300 MG TABLET 1 TAB PO DAILY GOUT (Reported) Aspirin (Aspirin*) 81 MG TAB.CHEW 1 TAB PO DAILY HEART HEALTH (Reported) Atenolol 50 MG TABLET 1 TAB PO DAILY HEART (Reported) Calcium Carb & Citrate/Vit D3 (Calcium + D3 ER Tablet) 600 MG CALCIUM-500 UNIT TABLET.ER 1 TAB PO DAILY SUPPLEMENT (Reported) Coenzyme Q10 100 MG CAPSULE 1 CAP PO DAILY SUPPLEMENT (Reported) Furosemide (Lasix) 40 MG TABLET 1 TAB PO DAILY HTN (Reported) Gabapentin (Neurontin) 300 MG CAPSULE 1 CAP PO 4 TIMES/DAY UNKNOWN (Reported) Meloxicam (Mobic) 15 MG TABLET 1 TAB PO DAILY PAIN (Reported) Pyridoxine HCl (Vitamin B-6) 100 MG TABLET 1 TAB PO DAILY VITAMIN SUPPORT ( Reported) Current Medications: Current Medications Sig/North Start time Last Medication Dose Route Stop Time Status Admin Acetaminophen 650 MG Q6P PRN 10/20 1400 AC PO Acetaminophen 1,000 MG Q6P PRN 10/20 1400 AC IV Acetaminophen/ 0 .STK-MED ONE 10/20 0910 DC Codeine Phosphate PO Acetaminophen/ 2 TAB ONCE ONE 10/20 0900 CAN Codeine Phosphate PO 10/20 0901 Acetaminophen/ 1 TAB ONCE ONE 10/20 0900 DC 10/20 Codeine Phosphate PO 10/20 0901 0914 Allopurinol 300 MG ONCE ONE 10/20 1045 DC 10/20 PO 10/20 1046 1128 Aspirin 81 MG ONCE ONE 10/20 1045 DC 10/20 PO 10/20 1046 1128 Atenolol 50 MG ONCE ONE 10/20 1045 DC / PO 10/20 1046 1128 Enoxaparin Sodium 40 MG DAILY 10/21 0900 AC SC Furosemide 40 MG ONE ONE 10/20 1045 DC PO 10/20 1046 Gabapentin 0 .STK-MED ONE 10/20 1215 DC PO Gabapentin 300 MG Q6 10/20 1200 AC 10/20 PO 1732 Gabapentin 400 MG STAT STA 10/20 1040 CAN PO 10/20 1041 Gabapentin 300 MG STAT STA 10/20 1031 CAN PO 10/20 1032 Ketorolac 15 MG Q8P PRN 10/20 1400 AC Tromethamine IV Ketorolac 0 .STK-MED ONE 10/20 0909 DC Tromethamine .ROUTE Ketorolac 15 MG ONE ONE 10/20 0900 DC 10/20 Tromethamine IM 10/20 0901 0914 Lorazepam 0 .STK-MED ONE 10/20 1121 DC PO Lorazepam 0.5 MG ONE ONE 10/20 1115 DC 10/20 PO 10/20 1116 1128 Sodium Chloride 1,000 ML ONCE ONE 10/20 1030 DC 05 IV 10/20 1709 1128 Past History Medical History Blood Transfusion Hx: No Neurological: NONE EENT: hearing loss, WEARS HEARING AIDS Cardiovascular: CHF, hypertension, PACEMAKER L CHEST Respiratory: NONE Gastrointestinal: NONE Hepatic: NONE Renal: NONE Musculoskeletal: osteoarthritis, "L SHOULDER POPS OUT" Psychiatric: NONE Endocrine: NONE Blood Disorders: NONE Cancer(s): NONE LEAD 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 Home Who Do You Live With? child Services at Home: None Primary Language: Kinyarwanda Smoking Status: Never Smoked ETOH Use: denies use Illicit Drug Use: denies illicit drug use Functional Ability ADLs Independent: dressing, eating, toileting, bathing. Ambulation: walker Exam & Diagnostic Data Vital Signs and I&O Vital Signs Date Time Temp Pulse Resp B/P B/P Pulse O2 O2 Flow FiO2 Mean Ox Delivery Rate 10/20 1612 98.3 67 20 110/80 94 / 1446 97.1 82 18 162/75 97 Room Air 10/20 1128 97.8 78 18 154/67 05/ 1128 78 18 154/67 100 Room Air / 0831 97.8 85 15 140/84 97 Room Air Room Air Intake & Output 10/20 1600 05/ 0800 05/03 0000 05/ 1600 05/ 0800 05/ 0000 Intake Total Output Total Balance Patient 216 lb Weight Weight Reported by Patient Measurement Method Physical Exam: On exam the patient is awake alert and oriented.On exam the patient's awake alert and oriented. She complains of severe back pain on the left side. It radiates into the left buttock. It radiates into the left buttock. Normocephalic atraumatic skull. Pupils are equal round react light accommodation. Neck is supple. Lungs are clear. Cardiovascular exam reveals S1 and S2 regular rate. Normocephalic atraumatic skull. Pupils are equal round react light accommodation. Neck is sup abdomen soft nontender. Examination lower back reveals significant tenderness to palpation about the paraspinal musculature on the left side of the lumbar spine. She has mild pain with range of motion of the hip. She has moderate midline tenderness in lumbar spine as well. Sensation light touch is grossly intact in left lower extremity. She has moderate midline tenderness and lumbar spine as well. Sensation light touch is grossly intact in left lower extremity. She has grossly normal motor strength in left lower extremity. She has grossly normal motor strength in left lower extremity. She has mild pain with range of motion of the hip. As was soft nontender. Examination of lower back reveals significant tenderness to palpation about the paraspinal musculature on the left side of the lumbar spine. Ple. Lungs are clear. Cardiovascular exam reveals S1-S2 regular rate. She complains of severe back pain on the left side. Assessment/Plan Assessment/Plan Low back pain with radiculopathy due to significant degenerative disc disease and spondylosis of the lumbar spine. Plan will be for treatment with anti- inflammatory medications and relief of pain by the medical service. No orthopedic intervention needed at this time. Consult Acknowledgment - Thank you for your consult request.
[2017-10-20 22:07] VITALS: BP 116/70
[2017-10-21 06:13] VITALS: BP 137/60
--- NOTE | 2017-10-21 07:15 | PN- Housestaff ---
Gibson Rae MD,[facility] 10/21/17 0714: Subjective Follow-up For: Intractable left hip pain Subjective: Patient visited today, was lying in bed in moderated distress, was alert and oriented. Upon questioning, she complained of 10/10 pain. No fever or chills, no shortness of breathing, no chest pain, no other events. Pain medications were adjusted after disscussing with attending. Review of Systems Constitutional: Reports: see HPI. Objective Last 24 Hrs of Vital Signs/I&O Vital Signs Date Time Temp Pulse Resp B/P B/P Pulse O2 O2 Flow FiO2 Mean Ox Delivery Rate 10/21 1118 98.7 79 20 100/60 100 Room Air 10/21 0613 97.3 88 20 137/60 94 / 2207 98.1 64 20 116/70 92 / 1612 98.3 67 20 110/80 94 / 1446 97.1 82 18 162/75 97 Room Air Intake & Output 10/21 1600 10/21 0800 10/21 0000 Intake Total 250 250 Output Total 200 300 Balance -200 -50 250 Intake, IV 10 10 Intake, Oral 240 240 Number 1 Bowel Movements Output, Urine 200 300 Physical Exam General Appearance: Alert, Oriented X3, Cooperative, Moderate Distress Sepsis Skin Exam (color): Normal for Ethnicity HEENT: Atraumatic, EOMI Neurological: Normal Speech Extremities: Pain in left hip with motion Current Medications: Current Medications Sig/North Start time Last Medication Dose Route Stop Time Status Admin Acetaminophen 1,000 MG Q6 10/21 1200 DC IV Acetaminophen 1,000 MG Q6 10/21 0845 DC 10/21 IV 0850 Acetaminophen 650 MG Q6P PRN 10/20 1400 AC 10/21 PO 0510 Acetaminophen 1,000 MG Q6P PRN 10/20 1400 DC IV Enoxaparin Sodium 40 MG DAILY 10/21 0900 AC 10/21 SC 0850 Gabapentin 0 .STK-MED ONE 10/20 1215 DC PO Gabapentin 300 MG Q6 10/20 1200 AC 10/21 PO 1145 Ketorolac 15 MG Q6P PRN 10/21 0845 AC Tromethamine IV Ketorolac 15 MG Q8P PRN 10/20 1400 DC 10/21 Tromethamine IV 0325 Lidocaine 1 PAT 2100 10/21 2100 AC EXT Lidocaine 1 PAT DAILY 10/20 1830 DC 10/20 EXT 1928 Ondansetron HCl 4 MG Q6P PRN 10/21 09 AC IV Sodium Chloride 1,000 ML ONCE ONE 10/20 1030 DC 10/20 IV 10/20 1709 1128 Tramadol HCl 50 MG Q4 10/21 09 AC 10/21 PO 10/22 1401 1013 Last 24 Hrs of Lab/Feliberto Results Last 24 Hrs of Labs/Mics: Laboratory Tests 10/21/17 0615: Anion Gap 12, Estimated GFR > 60, BUN/Creatinine Ratio 26.3 H, CBC w Diff NO MAN DIFF REQ, RBC 4.02 L, MCV 99.3 H, MCH 33.0 H, MCHC 33.2, RDW 13.8, MPV 9.7, Gran % 79.6 H, Lymphocytes % 14.2 L, Monocytes % 5.6, Eosinophils % 0.3, Basophils % 0.3, Absolute Granulocytes 8.4 H, Absolute Lymphocytes 1.5, Absolute Monocytes 0.6, Absolute Eosinophils 0, Absolute Basophils 0 10/20/17 1155: Anion Gap 12, Estimated GFR > 60, BUN/Creatinine Ratio 27.5 H, Glucose 106 H, Calcium 9.0, Total Bilirubin 1.0, AST 24, ALT 22, Alkaline Phosphatase 99, Total Protein 7.7, Albumin 4.0, Globulin 3.7, Albumin/Globulin Ratio 1.1, PT 12.4, INR 1.14, CBC w Diff NO MAN DIFF REQ, RBC 4.28, MCV 99.1 H, MCH 33.2 H, MCHC 33.5, RDW 13.6, MPV 8.6, Gran % 72.9, Lymphocytes % 21.5, Monocytes % 5.2, Eosinophils % 0.2, Basophils % 0.2, Absolute Granulocytes 6.4, Absolute Lymphocytes 1.9, Absolute Monocytes 0.5, Absolute Eosinophils 0, Absolute Basophils 0 Assessment/Plan Assessment: Patient is 77-year-old female presented with CC of severe hip pain PMH: obesity, HTN, HLP, OA, degenerative joint disease, extensive back surgery, bilateral TKR, TIA in 2005, spinal stenosis, sick sinus node status post pacemaker placement in 2008 VS, Ph Ex at admission: nonsignificant, BP 154/67 Labs at admission: C BC, BEP, coagulation insignificant Imagings at admission: Pelvic and Lumbar spine CT: - Incidental tiny periumbilical hernia and sigmoid diverticular changes. Patient status post hysterectomy. Left ovary is seen in the left lower quadrant 1. There are no acute fractures or subluxations. 2. The study redemonstrates severe multilevel spondylosis with disc protrusions/disc osteophyte complexes and facet arthropathy, contributing to central stenosis and foraminal narrowing as described above. 3. There is a grade 1 anterolisthesis of L4 on L5, and there is a retrolisthesis of L5 on S1. These appear similar compared to the prior study. Patient was admitted to [facility] floor for management of following conditions: Severe hip pain In setting of osteoarthritis, history of several back surgeries/spinal stenosis -Admit patient to general medicine floor -Patient allergic to several pain medication including several opiates -Ultram and Toradol q6 for severe pain - Ortho consult placed, recommended anti inflamatory treatment -Hold off MRI for now as no neurological deficit, questionable compatibility of the pacemaker with MRI Chronic medical conditions: We will continue home medication DVT prophylaxis subcutaneous Lovenox Heart healthy diet Patient is full code. Problem List: 1. Hip pain, left Pain Ratin Pain Location: :Left hip Pain Goal: Pain 4 or less Pain Plan: tramadol, toradol Tomorrow's Labs & Rationales: CBC for wbc increase Liang Mercer MD 10/21/17 1218: Attending MD Review Statement Attending Statement Attending MD Statement: examined this patient, discuss w/resident/PA/HR RECRUITER, agreed w/resident/PA/HR RECRUITER, reviewed EMR data (avail), discussed with nursing, discussed with case mgmt, amended to note Attending Assessment/Plan: Patient seen and examined. This morning she reported being in excruciating pain. She received a dose of IV Tylenol reported significant improvement in her pain. By the time the team rounded on her this morning she was resting comfortably. She reported feeling much better. She was seen by the orthopedic service yesterday. There are no plans for any surgical intervention. Patient reports no relief with Tylenol 3 at home. She does not tolerate a number of opiate medications. Recommendations: We will try the patient on Ultram today. If she tolerates this measurement she may be discharged the next 24-48 hours depending on her response. Patient is in agreement with this plan. Recommend evaluation by the physical therapy service to help mobilize the patient. Continue her Lasix home regimen for her chronic diastolic heart failure. Recommend evaluation by the technology methodology consultant for recommendations on managing her morbid obesity she has an elevated BMI.
[2017-10-21 08:07] LABS: ABSOLUTE BASOPHIL COUNT 0 /CUMM (0.0-0.2); ABSOLUTE EOSINOPHIL COUNT 0 /CUMM (0.0-0.7); ABSOLUTE GRANULOCYTE CT 8.4 /CUMM (1.4-6.5); ABSOLUTE LYMPH COUNT 1.5 /CUMM (1.2-3.4); ABSOLUTE MONOCYTE COUNT 0.6 /CUMM (0.10-0.60); BASOPHIL % 0.3 % (0.0-2.0); EOSINOPHIL % 0.3 % (0-5); GRANULOCYTE % 79.6 % (42.2-75.2); HEMATOCRIT 39.9 % (37-47); MEAN CORPUSCULAR HGB CONC 33.2 G/DL (33.0-37.0); MEAN CORPUSCULAR VOLUME 99.3 FL (81.0-99.0); MEAN PLATELET VOLUME 9.7 FL (7.4-10.4); RBC DISTRIBUTION WIDTH 13.8 % (11.5-14.5); RED BLOOD CELL CT 4.02 /CUMM (4.20-5.40)
[2017-10-21 08:59] LABS: PLATELET COUNT 223 /CUMM (130-400); WHITE BLOOD CELL COUNT 10.6 /CUMM (4.8-10.8)
[2017-10-21 11:18] VITALS: BP 100/60
--- NOTE | 2017-10-21 13:01 | Discharge Summary ---
Visit Information Visit Dates Admission Date: 10/20/17 Discharge Date: 10/25/17 Hospital Course Course Attending Physician: Liang Mercer MD Primary Care Physician: El Mccullough MD Hospital Course: The patient is a 77-year-old woman with past medical history significant for hypertension, hyperlipidemia, osteoarthritis, severe degenerative joint disease/ osteoarthritis, gout, TIA in 2005, spinal stenosis, sick sinus node status post pacemaker placement in 2008,presented to the ED for the evaluation of severe intractable left hip pain. Vitals and labs in the ER were stable. CT lumbar spine revealed no evidence of acute fractures or subluxations but showed severe multilevel spondylosis with disc protrusions/disc osteophyte complexes and facet arthropathy, contributing to central stenosis and foraminal narrowing There was grade 1 anterolisthesis of L4 on L5, and there is a retrolisthesis of L5 on S1. These appear similar compared to the prior study. Following problems were addressed while patient was on [facility] 1. Severe intractable left hip pain/sciatica due to severe osteoarthritis/ significant degenerative disc disease and spondylosis of the lumbar spine: Patient was admitted to the [facility]. Pain was adequately controlled with IV Tylenol, Toradol and Ultram(allergic to opioids). Patient was evaluated by orthopedic recommended conservative management. As there were no signs of cord compression so further imaging studies (MRI ) were held .Patient was seen by physical therapy recommended short-term rehabilitation on discharge. Patient was advised to follow-up with orthopedics as an outpatient. Patient states that she previously received steroid injection which helped for only a very abbreviated period of time. We spoke with IR to determine if repeat injection may help but after looking at imaging, they felt that it would likely not help for any substantial amount of time. 2. History of gout Allopurinol was continued during the hospitalization. 3. History of hypertension and hyperlipidemia,TIA and sick sinus node status post pacemaker placement in 2008 Home medications were continued. DVT prophylaxis subcutaneous Lovenox Pain control with IV Tylenol and IV Toradol Patient is full code. Allergies: Coded Allergies: Fish Containing Products (Severe, RASH FROM FISH 10/20/17) cilostazol (Severe, RECTAL BLEEDING AND RASH 10/20/17) pentoxifylline (Severe, RECTAL BLEEDING AN RASH 10/20/17) pork derived (porcine) (Severe, RASH 10/20/17) shellfish derived (Severe, RASH 10/20/17) morphine (Intermediate, RASH 10/20/17) acetaminophen (From Percocet) (UNKNOWN 10/20/17) adhesive tape (UNKNOWN 10/20/17) aspirin (RASH WITH HIGHER DOSE (81MG DOSE IS OK?) 10/20/17) cabbage (UNKNOWN 10/20/17) cortisone (UNKNOWN 10/20/17) guaifenesin (UNKNOWN 10/20/17) hydrocodone (UNKNOWN 10/20/17) latex (UNKNOWN 10/20/17) oxycodone (From Percocet) (UNKNOWN 10/20/17) propoxyphene (RASH AND NAUSEA 10/20/17) lactase (From DAIRY AID) (Intermediate, UNKNOWN 10/20/17) Uncoded Allergies: WHITE BREAD (Intermediate, UNKNOWN 09/26/15) Disposition Summary Disposition Principal Diagnosis: Severe intractable left hip pain/sciatica due to severe osteoarthritis/ significant degenerative disc disease and spondylosis of the lumbar spine Additional Diagnosis: History of gout Discharge Disposition: SNF Discharge Instructions General Discharge Information Code Status: Full Code Patient's Diet: Heart healthy diet Patient's Activity: as tolerated Follow-Up Instructions/Appts: 1. Please follow-up with the primary care physician within 1-2 weeks. 2. Please follow-up with your orthopedic surgeon within 1-2 weeks after discharge 3. Medications as directed compared to the ER if the symptoms get worse after the discharge Medications at Discharge Discharge Medications: Continue taking these medications: Atenolol (Atenolol) 50 MG TABLET 1 Tablet ORAL DAILY Furosemide (Lasix) 40 MG TABLET 1 Tablet ORAL DAILY Gabapentin (Neurontin) 300 MG CAPSULE 1 Capsule ORAL 4 TIMES A DAY Meloxicam (Mobic) 15 MG TABLET 1 Tablet ORAL DAILY Aspirin (Aspirin*) 81 MG TAB.CHEW 1 Tablet ORAL DAILY Allopurinol (Zyloprim) 300 MG TABLET 1 Tablet ORAL DAILY Calcium Carb & Citrate/Vit D3 (Calcium + D3 ER Tablet) 600 MG CALCIUM-500 UNIT TABLET.ER 1 Tablet ORAL DAILY Pyridoxine HCl (Vitamin B-6) 100 MG TABLET 1 Tablet ORAL DAILY Coenzyme Q10 (Coenzyme Q10) 100 MG CAPSULE 1 Capsule ORAL DAILY Acetaminophen With Codeine (Acetaminophen-Cod #3 Tablet) 300 MG-30 MG TABLET 1 Tablet ORAL EVERY SIX HOURS NEEDED as needed for PAIN Qty = 30 Start taking the following new medications: Tramadol HCl (Tramadol HCl) 50 MG TABLET 50 Milligram ORAL Every 4 hours Qty = 30 No Refills Lidocaine (Lidoderm) 5 % ADH..PATCH 1 Patch ON SKIN 2100 Qty = 30 No Refills Polyethylene Glycol 3350 (Miralax) 17 GRAM POWD.PACK 1 Packet ORAL DAILY Qty = 30 No Refills Instructions: dissolve in water Copies To: Jamel AMAYA,El Johnson
[2017-10-21 21:48] VITALS: BP 142/74
[2017-10-22 06:00] VITALS: BP 130/64
--- NOTE | 2017-10-22 06:44 | PN- Housestaff ---
[place] 10/22/17 0644: Subjective Follow-up For: Intractable left hip pain Subjective: No overnight events. Patient remained afebrileand examined this morning. She reported having left hip pain 3/10 at rest and it increases on movement. Patient doesn't want to go home because of the risk of the fall. I spoke to the pharmacist to start her on meloxicam but pharmacy doesn't contain meloxicam. Review of Systems Constitutional: Denies: chills, fever. EENTM: Reports: no symptoms. Cardiovascular: Denies: chest pain, orthopena, palpitations. Respiratory: Reports: no symptoms. Gastrointestinal: Reports: no symptoms. Genitourinary: Reports: no symptoms. Musculoskeletal: Reports: see HPI. Neurological/Psychological: Reports: no symptoms. Objective Last 24 Hrs of Vital Signs/I&O Vital Signs Date Time Temp Pulse Resp B/P B/P Pulse O2 O2 Flow FiO2 Mean Ox Delivery Rate 10/22 0600 98.2 63 18 130/64 95 Room Air 10/21 2148 98.6 62 18 142/74 94 Room Air 10/21 1118 98.7 79 20 100/60 100 Room Air Intake & Output 10/22 1600 /05 0800 05/ 0000 Intake Total 120 100 Output Total 250 Balance -130 100 Intake, IV 20 Intake, Oral 100 100 Output, Urine 250 Physical Exam General Appearance: Alert, Oriented X3, Cooperative Skin: No Rashes Sepsis Skin Exam (color): Normal for Ethnicity HEENT: Atraumatic, PERRLA, EOMI Neck: Supple Cardiovascular: Normal S1, Normal S2 Lungs: Clear to Auscultation Abdomen: Soft, No Tenderness Neurological: Normal Speech, Strength at 5/5 X4 Ext, Normal Tone Extremities: B/L GRADE 1 PEDAL EDEMA Assessment/Plan Assessment: 77-year-old obese female with PMH of HTN, HLP, OA, degenerative joint disease, extensive back surgery, bilateral TKR, TIA in 2005, spinal stenosis, sick sinus node status post pacemaker placement in 2008 presented with severe left hip pain. Following the patient for further problems: Intractable left hip pain: -Ruled out fracture -Continue Ultram every 4 hourly when necessary -Continue lidocaine patch -Continue tramadol every 6 hourly when necessary -Continue Zofran IV for nausea when necessary -Continue Tylenol every 6 hourly when necessary -Pharmacy doesn't carry meloxicam as i spoke to the pharmacist and confirmed it. History of spinal stenosis and neuropathy: -Continue gabapentin History of hypertension: -Continue atenolol -Continue Lasix History of GOUT: -Continue allopurinol History of TIA: -Holding her aspirin DVT prophylaxis: Mechanical subcutaneous heparin CODE STATUS: Full code Problem List: 1. Hip pain, left Pain Ratin Pain Location: LEFT HIP Pain Goal: Remain pain free Pain Plan: PAIN PATHWAY Tomorrow's Labs & Rationales: NONE Lizbeth Farrell MD 10/22/17 0855: Attending MD Review Statement Attending Statement Attending MD Statement: examined this patient, discuss w/resident/PA/EXPERIMENTAL ROCKET SLED MECHANIC, agreed w/resident/PA/EXPERIMENTAL ROCKET SLED MECHANIC, reviewed EMR data (avail), discussed with nursing, reviewed images Attending Assessment/Plan: Patient says that when she doesn't move her pain is tolerable but when she moves she continues to have severe pain. She does feel like the medication regimen with the lidocaine patch and the tramadol is helping. She is a 77-year-old female with morbid obesity, hypertension and gout who is here with intractable pain. She has severe spondylosis with spinal canal stenosis and we are treating her with non-opiate analgesia. Will restart her Mobic which she takes at home along with her gabapentin which she is already on and the tramadol. We'll restart her Lasix for her chronic diastolic heart failure with her atenolol and allopurinol. Will follow-up PTs recommendations- yesterday they said home with PT versus STR if goals are met and will follow closely.
[2017-10-22 08:20] LABS: ABSOLUTE BASOPHIL COUNT 0 /CUMM (0.0-0.2); ABSOLUTE EOSINOPHIL COUNT 0.2 /CUMM (0.0-0.7); ABSOLUTE GRANULOCYTE CT 4.8 /CUMM (1.4-6.5); ABSOLUTE LYMPH COUNT 1.6 /CUMM (1.2-3.4); ABSOLUTE MONOCYTE COUNT 0.5 /CUMM (0.10-0.60); BASOPHIL % 0.5 % (0.0-2.0); EOSINOPHIL % 2.4 % (0-5); GRANULOCYTE % 67.4 % (42.2-75.2); HEMATOCRIT 39.7 % (37-47); MEAN CORPUSCULAR HGB 33.2 PG (27.0-31.0); MEAN CORPUSCULAR HGB CONC 33.4 G/DL (33.0-37.0); MEAN CORPUSCULAR VOLUME 99.5 FL (81.0-99.0); MEAN PLATELET VOLUME 9.1 FL (7.4-10.4); PLATELET COUNT 228 /CUMM (130-400); RED BLOOD CELL CT 3.99 /CUMM (4.20-5.40); WHITE BLOOD CELL COUNT 7.2 /CUMM (4.8-10.8)
--- NOTE | 2017-10-22 08:35 | Patient Discharge Instructions ---
Discharge Instructions General Discharge Information You were seen/treated for: Intractable hip pain Osteoarthritis Watch for these problems: Severe pain, fever, chills, cough, sputum, confusion or worsening of any other symptoms Special Instructions: Please follow with your PCP within one week of discharge. Please follow with rebecca orthopedic [facility] within one-two weeks of discharge. Please take your medications as ordered. Diet Continue normal diet: No Recommended Diet: Heart Healthy Activity Full Activity/No Limits: No Activity Self Limited: Yes Acute Coronary Syndrome Inclusion Criteria At DC or during hospital stay patient has or had the following: ACS DIAGNOSIS No Discharge Core Measures Meds if any: Prescribed or Continued at Discharge Meds if any: NOT Prescribed or Continued at Discharge Congestive Heart Failure Inclusion Criteria At DC or during hospital stay patient has or had the following: CHF DIAGNOSIS No Discharge Core Measures Meds if any: Prescribed or Continued at Discharge Meds if any: NOT Prescribed or Continued at Discharge Cerebrovascular accident Inclusion Criteria At DC or during hospital stay patient has or had the following: CVA/TIA Diagnosis No Discharge Core Measures Meds if any: Prescribed or Continued at Discharge Meds if any: NOT Prescribed or Continued at Discharge Venous thromboembolism Inclusion Criteria VTE Diagnosis No VTE Type NONE VTE Confirmed by (Test) NONE Discharge Core Measures - Per Current guidelines, there needs to be overlap - treatment for the first 5 days of Warfarin therapy. - If discharged on Warfarin prior to 5 days of - overlap therapy, the patient will need to be - assessed for post discharge needs including - *Post discharge parental anticoagulation - *Warfarin and/or parental anticoagulation education - *Follow up date to check INR post discharge At least 5 days overlap therapy as Inpatient No Meds if any: Prescribed or Continued at Discharge Note: Overlap Therapy is Warfarin and Anticoagulant Meds if any: NOT Prescribed or Continued at Discharge
--- NOTE | 2017-10-22 13:46 | Cons- Psychiatry ---
Psychiatric Consult Date of Consult: 10/22/17 Allergies: Coded Allergies: Fish Containing Products (Severe, RASH FROM FISH 10/20/17) cilostazol (Severe, RECTAL BLEEDING AND RASH 10/20/17) pentoxifylline (Severe, RECTAL BLEEDING AN RASH 10/20/17) pork derived (porcine) (Severe, RASH 10/20/17) shellfish derived (Severe, RASH 10/20/17) morphine (Intermediate, RASH 10/20/17) acetaminophen (From Percocet) (UNKNOWN 10/20/17) adhesive tape (UNKNOWN 10/20/17) aspirin (RASH WITH HIGHER DOSE (81MG DOSE IS OK?) 10/20/17) cabbage (UNKNOWN 10/20/17) cortisone (UNKNOWN 10/20/17) guaifenesin (UNKNOWN 10/20/17) hydrocodone (UNKNOWN 10/20/17) latex (UNKNOWN 10/20/17) oxycodone (From Percocet) (UNKNOWN 10/20/17) propoxyphene (RASH AND NAUSEA 10/20/17) lactase (From DAIRY AID) (Intermediate, UNKNOWN 10/20/17) Uncoded Allergies: WHITE BREAD (Intermediate, UNKNOWN 09/26/15) Past History Past Medical History Neurological: NONE EENT: hearing loss, WEARS HEARING AIDS Cardiovascular: CHF, hypertension, PACEMAKER L CHEST Respiratory: NONE Gastrointestinal: NONE Hepatic: NONE Renal: NONE Musculoskeletal: osteoarthritis, "L SHOULDER POPS OUT" Psychiatric: NONE Endocrine: NONE Blood Disorders: NONE Cancer(s): NONE NEAR EASTERN ARCHAEOLOGY LECTURER/Reproductive: NONE Past Surgical History Surgical History: knee replacement (B/L), L SHOULDER REPAIR Assessment/Plan Impression: Patient seen at 12:40 PM. Psychiatric consult was requested for "depression, patient crying, stated due to pain." The patient is a 77-year-old white female without past psychiatric history who was admitted on 10/20/17 in the context of severe left hip pain. Past psychiatric history: No history of outpatient or inpatient treatment. No suicide attempts. Substance use history: No tobacco, alcohol or drugs. Medications: Current medication list reviewed. Patient reports that Dr. Mccullough prescribes Tylenol #3 for her. Family psychiatric and substance abuse history: Psychiatric: None. Substances: Father was alcoholic. Suicides: None. Social history: Patient lives in [place] with her 2 sons and their families. She used to live in [place] until 1976. 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 She worked at the [employer] and also at [employer]. Mental status examination: The patient is an elderly white woman, overweight, dressed in hospital garb, sitting on a commode, also sitting at her tray table eating lunch. She is calm, polite and cooperative. There is no psychomotor agitation or retardation. Speech is normal in volume, rate and tone. Affect is calm and euthymic. Reports mood now as "I'm flying high. Just had a good talk with the Deacon." Rates sad mood and anxiety both 0/10. Denies feeling hopeless. Feels helpless sometimes. Denies feeling worthless or guilty. Denies suicidal and homicidal ideation. Denies auditory hallucinations. Reports occasionally having visual hallucinations related to her having cataracts but denies visual hallucinations today. Denies paranoid ideation and magical zamora. There is no apparent thought disorder or delusions. Insight and judgment are good. The patient is oriented 3, giving the date as October 22 or 2017. Cognition is grossly intact. Memory is grossly intact. Estimate of intellectual functioning is average. Reports sleep is not bad. Reports appetite was pretty lousy but today she feels like eating. Energy depends on her physical position. IMPRESSION: Hip pain. I do not believe that this patient has a primary psychiatric diagnosis. She reports that her recent crying was related to her pain. I have ordered a TSH and B12/folate. Recommend optimizing pain management. Thank you for this consultation.
[2017-10-22 14:31] VITALS: BP 140/70
[2017-10-22 22:17] VITALS: BP 106/54
[2017-10-23 06:20] VITALS: BP 132/60
--- NOTE | 2017-10-23 07:02 | PN- Housestaff ---
[place] 10/23/17 0702: Subjective Follow-up For: Intractable left hip pain Subjective: No overnight events. Patient remained afebrileand examined this morning. She denied in chest pain, short of breath, nausea, vomiting, chills, fever and abdominal pain. Patient reported having left ear pain but it's under control with pain medications. Patient doesn't want to go home because of her hip pain and she is having fear of fall. Review of Systems Constitutional: Denies: chills, fever. EENTM: Reports: no symptoms. Cardiovascular: Denies: chest pain, orthopena, palpitations. Respiratory: Denies: cough, orthopnea, short of breath. Gastrointestinal: Denies: abdominal pain, diarrhea, nausea. Genitourinary: Reports: no symptoms. Musculoskeletal: Reports: see HPI. Neurological/Psychological: Reports: no symptoms. Objective Last 24 Hrs of Vital Signs/I&O Vital Signs Date Time Temp Pulse Resp B/P B/P Pulse O2 O2 Flow FiO2 Mean Ox Delivery Rate 10/23 0826 72 132/60 10/23 0620 98.6 77 20 132/60 92 Room Air 10/22 2217 99.0 63 20 106/54 92 Room Air / 1431 98.6 64 20 140/70 97 Intake & Output / 1600 05/06 0800 05/ 0000 Intake Total 200 120 Output Total 450 300 Balance -250 -180 Intake, Oral 200 120 Number 0 0 Bowel Movements Output, Urine 450 300 Physical Exam General Appearance: Alert, Oriented X3, Cooperative Skin Temp/Moisture Exam: Warm/Dry Sepsis Skin Exam (color): Normal for Ethnicity HEENT: Atraumatic, PERRLA, EOMI Neck: Supple Cardiovascular: Normal S1, Normal S2 Lungs: Clear to Auscultation Abdomen: Soft, No Tenderness Extremities: b/l pedal edema grade 1 Assessment/Plan Assessment: 77-year-old obese female with PMH of HTN, HLP, OA, degenerative joint disease, extensive back surgery, bilateral TKR, TIA in 2005, spinal stenosis, sick sinus node status post pacemaker placement in 2008 presented with severe left hip pain. Following the patient for following problems: Intractable left hip pain: -Imaging studies are negative for any fracture. -Continue Ultram every 4 hourly when necessary -Continue lidocaine patch -Continue tramadol every 6 hourly when necessary -Continue Zofran IV for nausea when necessary -Continue Tylenol TID -Patient doesn't want to go home because she is not able to walk properly due to the pain. We will talk to mental health case manager if she qualifies for short-term rehabilitation. History of spinal stenosis and neuropathy: -Continue gabapentin History of hypertension: -Continue atenolol -Continue Lasix History of GOUT: -Continue allopurinol History of TIA: -Holding her aspirin DVT prophylaxis: Mechanical subcutaneous heparin CODE STATUS: Full code Problem List: 1. Hip pain, left Pain Ratin Pain Location: left hip Pain Goal: Remain pain free Pain Plan: pain pathway Tomorrow's Labs & Rationales: none Jami AMAYA,Lizbeth 10/23/17 1012: Attending MD Review Statement Attending Statement Attending MD Statement: examined this patient, discuss w/resident/PA/RV MECHANIC, agreed w/resident/PA/RV MECHANIC, reviewed EMR data (avail), discussed with nursing, discussed with case mgmt, reviewed images Attending Assessment/Plan: Pt is crying and she says she is extremely worried about her pain. She is very worried about what will happen to her at [facility] given that slight movement causes her pain. Appreciate psychiatry evaluation, she was seen by Dr. Love yesterday who feels that her issues are secondary to pain. She cannot tolerate opiates well but the tramadol gave her some relief and I will renew the tramadol prn for now. I also spoke to her at length and we are going to change the Tylenol to 1 g 3 times a day standing with the hope of that controlling some of the pain. She has morbid obesity with spondylosis and spinal canal stenosis which we are treating with nonnarcotic analgesia.
[2017-10-23 08:48] LABS: ABSOLUTE BASOPHIL COUNT 0 /CUMM (0.0-0.2); ABSOLUTE EOSINOPHIL COUNT 0.2 /CUMM (0.0-0.7); ABSOLUTE GRANULOCYTE CT 4.9 /CUMM (1.4-6.5); ABSOLUTE MONOCYTE COUNT 0.6 /CUMM (0.10-0.60); EOSINOPHIL % 2.9 % (0-5); GRANULOCYTE % 63.1 % (42.2-75.2); MEAN CORPUSCULAR HGB 33.2 PG (27.0-31.0); MEAN CORPUSCULAR HGB CONC 33.4 G/DL (33.0-37.0); PLATELET COUNT 218 /CUMM (130-400); RBC DISTRIBUTION WIDTH 14.2 % (11.5-14.5); WHITE BLOOD CELL COUNT 7.7 /CUMM (4.8-10.8)
[2017-10-23 09:04] LABS: BASOPHIL % 0.6 % (0.0-2.0); HEMATOCRIT 39.7 % (37-47); MEAN CORPUSCULAR VOLUME 99.2 FL (81.0-99.0)
[2017-10-23 14:52] VITALS: BP 110/60
[2017-10-23 22:04] VITALS: BP 124/90
[2017-10-24 06:31] VITALS: BP 114/68
--- NOTE | 2017-10-24 07:15 | PN- Housestaff ---
Gibson Rae MD,[facility] 10/24/17 0715: Subjective Follow-up For: Intractable hip pain Subjective: Patient visited today, obese lady, was lying in bed comfortably in no acute distress, was alert and oriented. Subjectively reported pain improved, rated 8-9 at the time of inteview. Does not feel safe to go home considering staying for severl hours alone. No fever or chills, no shortness of breathing, no chest pain, no other events. was able to ambulate yesterday stable to be discharge pending placement on current pain meidcation regimen. Review of Systems Constitutional: Reports: see HPI. Objective Last 24 Hrs of Vital Signs/I&O Vital Signs Date Time Temp Pulse Resp B/P B/P Pulse O2 O2 Flow FiO2 Mean Ox Delivery Rate 10/24 0810 81 114/68 10/24 0631 98.5 81 18 11468 96 Room Air 10/23 2204 98.7 73 20 124/90 97 Room Air 10/23 1452 97.5 83 20 110/60 96 Intake & Output 10/24 1600 10/24 0800 10/24 0000 Intake Total 400 480 Output Total 300 600 Balance 100 -120 Intake, Oral 400 480 Number 0 Bowel Movements Output, Urine 300 600 Physical Exam General Appearance: Alert, Oriented X3, Cooperative, No Acute Distress Skin Temp/Moisture Exam: Warm/Dry Sepsis Skin Exam (color): Normal for Ethnicity HEENT: Atraumatic, EOMI Cardiovascular: Normal S1, Normal S2 Lungs: Clear to Auscultation, Normal Air Movement Abdomen: Obese Extremities: Can move left hip with minimal pain, improvement Assessment/Plan Assessment: Patient is 77-year-old female presented with CC of severe hip pain PMH: obesity, HTN, HLP, OA, degenerative joint disease, extensive back surgery, bilateral TKR, TIA in 2005, spinal stenosis, sick sinus node status post pacemaker placement in 2008 VS, Ph Ex at admission: nonsignificant, BP 154/67 Labs at admission: C BC, BEP, coagulation insignificant Imagings at admission: Pelvic and Lumbar spine CT: - Incidental tiny periumbilical hernia and sigmoid diverticular changes. Patient status post hysterectomy. Left ovary is seen in the left lower quadrant 1. There are no acute fractures or subluxations. 2. The study redemonstrates severe multilevel spondylosis with disc protrusions/disc osteophyte complexes and facet arthropathy, contributing to central stenosis and foraminal narrowing as described above. 3. There is a grade 1 anterolisthesis of L4 on L5, and there is a retrolisthesis of L5 on S1. These appear similar compared to the prior study. Patient was admitted to floor for management of following conditions: Severe hip pain In setting of osteoarthritis, history of several back surgeries/spinal stenosis -stable to be discharged on current pain regiment - pending placement - PT suggested home PT vs [facility], will DC to [facility] as noted above - Patient allergic to several pain medication including several opiates - Currently tolerated Ultram and Toradol q6 for severe pain - Tynelol 3, home dose to continue - Ortho consult placed, recommended anti inflamatory treatment - Pysch consult ruled out any disorder Chronic medical conditions: We will continue home medication DVT prophylaxis subcutaneous Lovenox Heart healthy diet Patient is full code. Problem List: 1. Hip pain, left 2. Spinal stenosis Pain Ratin Pain Location: Hip Pain Goal: Pain 4 or less Pain Plan: Ultram Tynelol 3 Tomorrow's Labs & Rationales: None stable to discharge Liang Mercer MD 10/24/17 1159: Attending MD Review Statement Attending Statement Attending MD Statement: examined this patient, discuss w/resident/PA/WOOL TAMPER, agreed w/resident/PA/WOOL TAMPER, reviewed EMR data (avail), discussed with nursing, discussed with case mgmt, amended to note Attending Assessment/Plan: Patient seen and examined. Currently lying comfortably in bed and not in acute distress. Continues to complain of pain in the back and hips. She does admit relief with her current pain regimen. She was seen by physical therapy service and recommendations are for short-term rehabilitation. The orthopedic service is not recommending surgical intervention at present. [facility] She will continue there with physical therapy and pain management with Lidoderm patch, Ultram and Tylenol No. 3. Patient is in agreement with this plan. She admits to the need for more help than can be rendered at home by her family members.
[2017-10-24] MEDS ORDERED: LIDODERM1 EACH EXT (09:55)
[2017-10-24] MEDS ORDERED: MIRALAX17 G1 PO (09:55)
[2017-10-24] MEDS ORDERED: TRAMADOL HCL50 M1 PO (09:55)
[2017-10-24 14:04] VITALS: BP 130/70
[2017-10-25 06:19] VITALS: BP 126/64
--- NOTE | 2017-10-25 07:40 | PN- Housestaff ---
Kori Batista MD 10/25/17 0739: Subjective Follow-up For: intractable hip and back pain Complaints: pain scale (0-10) Subjective: Patient seen and examined. Continues to be in pain, extremtely uncomfortable. Patient denies any other symptoms. Review of Systems Constitutional: Reports: no symptoms. Musculoskeletal: Reports: back pain, joint pain, muscle pain. Objective Last 24 Hrs of Vital Signs/I&O Vital Signs Date Time Temp Pulse Resp B/P B/P Pulse O2 O2 Flow FiO2 Mean Ox Delivery Rate 10/25 1425 98.2 62 18 126/60 10/25 1412 98.2 62 18 126/60 92 Room Air 10/25 1027 70 130/64 10/25 0619 97.5 65 20 126/64 93 Room Air Intake & Output 10/25 1600 10/25 0800 10/25 0000 Intake Total 720 260 250 Output Total Balance 720 260 250 Intake, IV 20 10 Intake, Oral 720 240 240 Number 0 Bowel Movements Physical Exam General Appearance: Alert, Oriented X3, Cooperative, Moderate Distress Skin: No Rashes, No Breakdown, No Significant Lesion Cardiovascular: Regular Rate, Normal S1, Normal S2 Extremities: No Clubbing, No Cyanosis, No Edema, Normal Pulses Assessment/Plan Assessment: Patient is 77-year-old female presented with CC of severe hip pain PMH: obesity, HTN, HLP, OA, degenerative joint disease, extensive back surgery, bilateral TKR, TIA in 2005, spinal stenosis, sick sinus node status post pacemaker placement in 2008 VS, Ph Ex at admission: nonsignificant, BP 154/67 Labs at admission: C BC, BEP, coagulation insignificant Imagings at admission: Pelvic and Lumbar spine CT: - Incidental tiny periumbilical hernia and sigmoid diverticular changes. Patient status post hysterectomy. Left ovary is seen in the left lower quadrant 1. There are no acute fractures or subluxations. 2. The study redemonstrates severe multilevel spondylosis with disc protrusions/disc osteophyte complexes and facet arthropathy, contributing to central stenosis and foraminal narrowing as described above. 3. There is a grade 1 anterolisthesis of L4 on L5, and there is a retrolisthesis of L5 on S1. These appear similar compared to the prior study. Patient was admitted to floor for management of following conditions: Severe hip pain In setting of osteoarthritis, history of several back surgeries/spinal stenosis -stable to be discharged on current pain regiment - pending placement - PT suggested home PT vs [facility], will DC to [facility] as noted above - Patient allergic to several pain medication including several opiates - Currently tolerated Ultram and Toradol q6 for severe pain - Tynelol 3, home dose to continue - Ortho consult placed, recommended anti inflamatory treatment - Pysch consult ruled out any disorder Chronic medical conditions: We will continue home medication DVT prophylaxis subcutaneous Lovenox Heart healthy diet Patient is full code. Problem List: 1. Spinal stenosis 2. Hip pain, left 3. Intractable back pain 4. Arthritis of left hip Pain Ratin Pain Location: back and hips Pain Goal: Pain 7 or less Pain Plan: tylenol 3 ultram tramadol Tomorrow's Labs & Rationales: patient to be discharged Liang Mercer MD 10/25/17 1251: Attending MD Review Statement Attending Statement Attending MD Statement: examined this patient, discuss w/resident/PA/LENS CLEANER, agreed w/resident/PA/LENS CLEANER, reviewed EMR data (avail), discussed with nursing, discussed with case mgmt, amended to note Attending Assessment/Plan: Patient seen and examined. Climbing bed does not appear to be in acute distress this morning. Nursing staff reports that when approached earlier today to administer pain medications patient declined to take any medications. Patient reports some relief with use of current regimen. She is frustrated about the need to continuously take pain medications. She reports that she has been taking Tylenol 3 for over 20 years. She reports that she has had several surgeries on multiple joints over the past few decades due to degenerative joint disease. She reports trying epidural spinal injection in the past but states that the only provided relief for about 3 days. We did reach out to the interventional radiology service today regarding performing another epidural spinal injection therapy however given the extent of her degenerative joint disease. Full success was low as reported by the interventional radiology service. I did speak with her current orthopedic surgeon Hugh King MD. He reports that patient has flareups every 9 day and she has tried several therapies in the past. This time [facility]. Pain control will continue with her Tylenol 3, Ultram and Lidoderm patch. She has reported allergies to other more potent pain medications and she is reluctant to try any of them.
[2017-10-25 14:12] VITALS: BP 126/60
[2017-10-25 14:25] VITALS: BP 126/60
== END 2017-10-25 15:20 | DRG 552 ==
LOC: ERH 08:29 → ERHI 13:17 → 2NA 13:17 → ENRESERV 14:54 → ENTRNSPT 15:32 → EDTRNSPTSTS 15:35 → EDTRNSPT 15:35 → 2NA 15:41 → CMPTRNSPT 15:42 → 2NA 15:44
PROVIDERS: Emergency Medicine; Radiology Vascular & Interventional Radiology; Student in an Organized Health Care Education/Training Program
DX: M54.16 Radiculopathy, lumbar region (principal); I11.0 Hypertensive heart disease with heart failure; E66.01 Morbid (severe) obesity due to excess calories; I50.32 Chronic diastolic (congestive) heart failure; Z68.42 Body mass index [BMI] 45.0-49.9, adult; M16.12 Unilateral primary osteoarthritis, left hip; M47.897 Other spondylosis, lumbosacral region; Z95.0 Presence of cardiac pacemaker; M10.9 Gout, unspecified; E78.5 Hyperlipidemia, unspecified; M25.552 Pain in left hip; R26.2 Difficulty in walking, not elsewhere classified; M54.42 Lumbago with sciatica, left side; Z86.73 Personal history of transient ischemic attack (TIA), and cerebral infarction without residual deficits; Z88.6 Allergy status to analgesic agent; Z88.5 Allergy status to narcotic agent; Z88.8 Allergy status to other drugs, medicaments and biological substances; Z97.4 Presence of external hearing-aid; Z96.653 Presence of artificial knee joint, bilateral; Z90.710 Acquired absence of both cervix and uterus; M48.061 Spinal stenosis, lumbar region without neurogenic claudication
CPT/HCPCS: 2NASP; 36415; 36592; 82436; 93005; 93010; 96372; 97110-GO; 97116-GO; 97161-GP; 97530-GO; J0131; J1650; J1885; J2405